=== PATIENT | male | born 1965 | race Caucasian/White ===

== ENCOUNTER 2017-06-16 14:02 | Inpatient (IN) | payer OTHER, MEDICARE ==
[~2017-06-16] VITALS: Ht 190.5 cm; Wt 82.7 kg
[~2017-06-16 14:02] MED LIST: ACYCLOVIR400 M1 PO; ADVAIR 250-501 EACH INH; ASPIRIN81 M4 PO; GABAPENTIN300 M2 PO; GLIMEPIRIDE2 MG PO; HYDROCHLOROTHIA25 M1 PO; LOSARTAN POTASS50 M1 PO; METFORMIN HCL1000 M1 PO; METOPROLOL SUCC25 M1 PO; OXYCODONE HCL10 M2 PO; PAMELOR50 M1 PO; PANTOPRAZOLE SO40 M1 PO; PERCOCET 5-3251 EACH PO; POTASSIUM CHLO10 ME4 PO; PRAVASTATIN SOD20 M2 PO
--- NOTE | 2017-06-16 14:15 | ED GENERAL ADULT ---
History of Present Illness General Chief Complaint: General Adult Stated Complaint: PT WAS SIB DR COY FOR LOW BLOOD COUNT Source: patient, old records Exam Limitations: no limitations Vital Signs & Intake/Output Vital Signs & Intake/Output Vital Signs Date Time Temp Pulse Resp B/P B/P Pulse O2 O2 Flow FiO2 Mean Ox Delivery Rate 06/16 1820 98.5 82 17 147/77 97 Room Air 06/16 1659 98.4 76 18 148/68 98 Room Air 06/16 1642 98.4 78 17 133/63 97 Room Air 06/16 1406 97.0 112 20 134/60 98 Room Air Allergies Coded Allergies: No Known Allergies (10/25/16) Reconcile Medications Acyclovir 400 MG TABLET 1 TAB PO TID ANTIVIRAL (Reported) Amoxicillin 875 MG TABLET 1 TAB PO BID ABX (Reported) Aspirin (Ecotrin*) 81 MG TABLET.DR 1 TAB PO DAILY HEART/BLOOD (Reported) Aspirin/Acetaminophen/Caffeine (Excedrin Migraine Caplet) 250 MG-250 MG-65 MG TABLET 2 TAB PO PRN HEADACHES (Reported) Celecoxib (Celebrex) 200 MG CAPSULE 1 CAP PO BID PAIN/INFLAMMATION (Reported) Esomeprazole (Nexium) 40 MG CAPSULE.DR 1 CAP PO DAILY GI (Reported) Fluticasone/Salmeterol (Advair 250-50 Diskus) 250 MCG-50 MCG/DOSE BLST.W.DEV 2 PUF INH BID ASTHMA (Reported) Gabapentin 300 MG CAPSULE 2 CAP PO 4 TIMES/DAY UNKNOWN (Reported) Glimepiride 2 MG TABLET 1 TAB PO DAILY DIABETES (Reported) Hydrochlorothiazide 25 MG TABLET 1 TAB PO DAILY WATER RETENTION (Reported) Losartan Potassium 50 MG TABLET 1 TAB PO DAILY HEART (Reported) Metformin HCl 1,000 MG TABLET 1 TAB PO BID DIABETES (Reported) Metoprolol Succinate 25 MG TAB 1 TAB PO DAILY HEART (Reported) Nortriptyline HCl (Pamelor) 50 MG CAPSULE 2 CAP PO QPM CRAMPING (Reported) Nortriptyline HCl (Pamelor) 50 MG CAPSULE 1 CAP PO QAM CRAMPING (Reported) Oxycodone HCl (Roxicodone) 15 MG TABLET 1 TAB PO TID PRN PAIN (Reported) Potassium Chloride 10 MEQ TABLET.ER 1 TAB PO DAILY SUPPLEMENT (Reported) Pravastatin Sodium 20 MG TABLET 1 TAB PO DAILY CHOLESTEROL (Reported) Triage Note: PT TO ED FOR LOW H&H. SENT TO ED BY DR ANDERSON. H&H ON 06/13 WAS 5.9 & 20.0. PT APPEARS PALE. C/O FEELING DIZZY AND LIGHTHEADED WITH EXERTION. Triage Nurses Notes Reviewed? yes Onset: Gradual Duration: week(s):, constant Timing: recent history Injury Environment: home Severity: moderate Severity Numbers: 7 No Modifying Factors: none Associated Symptoms: DENIES HPI: 51 year old male with history of GI Bleed, heroin abuse, diabetes mellitus, hypertension, GERD presents to the ER for evaluation complaining of intermittent dizziness shortness of breath with exertion skin pallor is been going on for the past several months. He was admitted in October of this past year for GI bleed however did not have any endoscopy colonoscopy performed as he declined at the time. Patient states over the past few days he's had epigastric abdominal pain and believes he has an ulcer. He's been taking Excedrin for headaches is that this aggravated this pain in his abdomen. He denies nausea vomiting. He has history of chronic diarrhea which he has had for years. He denies any hematuria, black or bloody stools. He denies dizziness or shortness of breath at this time no chest pain palpitations. He is not on any blood thinners. pt smokes, he denies etoh use. (Mitchell Baires) Past History Travel History Traveled to [place] past 21 day No Medical History Any Pertinent Medical History? see below for history Neurological: migraine EENT: NONE Cardiovascular: hypertension Respiratory: asthma Gastrointestinal: GERD, gi bleed Hepatic: NONE Renal: NONE Psychiatric: OPIOD DEP. Endocrine: diabetes Blood Disorders: anemia Cancer(s): NONE HEMATOLOGIST/Reproductive: NONE History of MRSA: No History of VRE: No History of CDIFF: No Surgical History Surgical History: multiple surgeries on his shoulder, elbow and hand Psychosocial History Who do you live with Patient/Self Services at Home None What is your primary language Yakut Tobacco Use: Current Daily Use Daily Tobacco Use Amount/Type: => 5 Cigarettes daily ETOH Use: denies use Illicit Drug Use: heroin Family History Hx Contributory? No (Mitchell Baires) Review of Systems Review of Systems Constitutional: Reports: see HPI. Comments Review of systems: See HPI, All other systems negative. Constitutional, no chills no fever, HEENT: no sore throat no congestion Cardiovascular: No chest pain Skin: no rashes, no change in skin Respiratory: No dyspnea no cough no sputum GI: No nausea no vomiting, diarrhea, : No dysuria No hematuria Muscle skeletal: No joint pain, no back pain, no neck pain, Neurologic: , no headache Heme/endocrine: No bruising Immunology: No lymphadenopathy (Mitchell Baires) Physical Exam Physical Exam General Appearance: well developed/nourished, alert, awake Comments: Well-developed well-nourished person in no acute distress HEENT: Normal EENT exam; PERRL, EOMI,. HEAD is atraumatic. moist mucous membranes. Neck: Supple,normal range of motion without pain or tenderness Back: Full range of motion Cardiovascular: Regular rate and rhythms no murmurs rubs Respiratory: No respiratory distress. Patient speaking in full complete sentences. Breath sounds clear to auscultation bilaterally: NO W/R/R Abdomen: Soft, nontender nondistended, no appreciable organomegaly. Normal bowel sounds. No rebound/guarding,, No ascites. Rectal: Nontender. Brown stool heme positive No mass, no fissure. Extremity: No edema, full range of motion of extremities, Neuro: Alert oriented x3, motor sensory normal, There were no obvious focal neurologic abnormalities. Skin: No appreciable rash on exposed skin, skin is pale and dry. Psych: Mood and affect is normal, memory and judgment is normal. Core Measures ACS in differential dx? No CVA/TIA Diagnosis: No Sepsis Present: No Sepsis Focused Exam Completed? No (Mitchell Baires) Progress Differential Diagnoses I considered the following diagnoses in my evaluation of the patient: [gi bleed, symptomatic anemia orthostatic hypotension dehydration electrolyte abnormality Plan of Care: Orders Procedure Date/time Status Nothing by Mouth 06/17 B Active TROPONIN LEVEL 06/17 0500 Active ICU LAB BUNDLE 06/17 0500 Active CBC WITHOUT DIFFERENTIAL 06/17 0500 Active EKG 06/17 0500 Active Heart Healthy Diet 06/16 D Complete TROPONIN LEVEL 06/16 2100 Active CBC WITHOUT DIFFERENTIAL 06/16 2100 Active EKG 06/16 2100 Active Wound Care/Dressing 06/16 1825 Active Drains/Tubes 06/16 1825 Active Wound Care/Dressing 06/16 1806 Complete Weight 06/16 1806 Active VTE Mechanical Prophylaxis 06/16 1806 Active Vital Signs 06/16 1806 Active Turn and Reposition 06/16 180 Complete Drains/Tubes 06/16 1806 Complete Teach/Educate 06/16 180 Active Skin Integrity Protocol 06/16 1806 Active Skin/Pressure Ulcer Assess (Sk 06/16 1806 Active Precautions 06/16 1806 Active Pain Treatment and Response 06/16 1806 Active Nutritional Intake, Monitor 06/16 1806 Active Isolation 06/16 1806 Active CIWA 06/16 180 Active Patient Care Conference 06/16 1806 Active Activity/Ambulation 06/16 1806 Active VRE ACTIVE SURVIELLANCE 06/16 1751 Active ACTIVE SURVEILLANCE NARES 06/16 1751 Active Pathway - chart 06/16 1731 Active House Staff 06/16 1731 Active URINE DRUGS OF ABUSE 06/16 1731 Active URINE LYTES, SPOT 06/16 1731 Active URINALYSIS 06/16 1731 Active BLOOD PRODUCT PICKUP 06/16 1613 Active Patient Data 06/16 1602 Active Add-on Test (ER Only) 06/16 1508 Active LEUKOCYTE POOR (PACKED CELLS) 06/16 1508 Active Intake & Output 06/16 1500 Active ED Holding Orders 06/16 1457 Active Admit to inpatient 06/16 1457 Active Vital Signs 06/16 1457 Active Code Status 06/16 1457 Active TOTAL IRON BINDING CAPACITY 06/16 1455 Active LIPASE 06/16 1455 Active FERRITIN 06/16 1455 Active SERUM IRON 06/16 1455 Active ETHANOL 06/16 1455 Active MISTAKE 06/16 1424 Complete TROPONIN LEVEL 06/16 1413 Active PARTIAL THROMBOPLASTIN TIME 06/16 1413 Complete PROTHROMBIN TIME 06/16 1413 Complete COMPREHENSIVE METABOLIC PANEL 06/16 1413 Active CBC WITHOUT DIFFERENTIAL 06/16 1413 Complete EKG 06/16 1413 Active TYPE & SCREEN (NOT X-MATCH) 06/16 1413 Active Saline Lock 06/16 UNK Active Lab Add-on Test 06/16 UNK Active VTE Mechanical Prophylaxis 06/16 UNK Active Vital Signs 06/16 UNK Complete MISTAKE 06/16 UNK Complete Intake & Output 06/16 UNK Complete Hemoccult 06/16 UNK Active FingerStick- Glucose 06/16 UNK Active CIWA 06/16 UNK Active Activity/Ambulation 06/16 UNK Active Current Medications Sig/Marissa Start time Last Medication Dose Stop Time Status Admin Nortriptyline HCl 50 MG QAM 06/17 899 UNVr (Aventyl 50MG - Pamelor Cap) Pravastatin Sodium 20 MG DAILY 06/17 899 UNVr (Pravachol) Acyclovir 400 MG TID 06/16 2099 UNVr (Zovirax-Acyclovir 200MG Capsule) Budesonide/ 2 PUF BID 06/16 2099 UNVr Formoterol Fumarate (Symbicort) Gabapentin 600 MG 4 TIMES/DAY 06/16 2099 UNVr (Neurontin) Nortriptyline HCl 100 MG QPM 06/16 2099 UNVr (Aventyl 50MG - Pamelor Cap) Pantoprazole Sodium 40 MG BID 06/16 2099 UNVr (Protonix) Bisacodyl 5 MG ONE ONE 06/17 1999 UNVr (Dulcolax) 06/16 2000 Bisacodyl 5 MG ONE ONE 06/17 1999 UNVr (Dulcolax) 06/16 2000 Polyethylene Glycol 1 GAL ONCE ONE 06/17 1999 UNVr (Golytely Liq 4000 06/16 2001 Ml) Insulin Aspart 0 TIDAC 06/16 181 UNVr (NovoLOG) Sodium Chloride 1,000 ML Q10H 06/16 1800 UNVr (Normal Saline 0.9%) Oxycodone HCl 15 MG Q8P PRN 06/16 1745 UNVr (Roxicodone) Acetaminophen 325 MG Q8P PRN 06/16 1730 UNVr (Tylenol) Laboratory Tests 06/16/17 1455: Anion Gap 12, Estimated GFR 58 L, BUN/Creatinine Ratio 17.7, Glucose 100 H, Calcium 8.8, Iron 20 L, TIBC 434, Ferritin Pending, Total Bilirubin 0.3, AST 12 L, ALT 14 L, Alkaline Phosphatase 48, Troponin I < 0.01, Total Protein 6.8, Albumin 3.9, Globulin 2.9, Albumin/Globulin Ratio 1.3, Lipase 63, PT 11.7, INR 1.07, APTT 32, CBC w Diff MAN DIFF ORDERED, RBC 2.71 L, MCV 62.8 L, MCH 19.2 L, MCHC 30.6 L, RDW 18.4 H, MPV 7.5, Gran % 75.2, Lymphocytes % 13.6 L, Monocytes % 8.3, Eosinophils % 2.9, Basophils % 0, Absolute Granulocytes 6.3, Absolute Lymphocytes 1.1 L, Absolute Monocytes 0.7 H, Absolute Eosinophils 0.2 , Absolute Basophils 0, Platelet Estimate ADEQUATE, Hypochromic-Microcytic 3+, Poikilocytosis FEW, Microcytic Cells 3+, Serum Alcohol < 10.0 Microbiology 06/16 1750 UPPER RESP: Surveillance Culture - COLB 06/16 1750 GI: Surveillance Culture - COLB Labs ordered old records reviewed orthostatics are negative. Case discussed with Dr. Mcgowan who evaluated the patient advised that the patient be scoped. Protonix drip IV fluids ordered patient consented for 3 units blood. Case discussed with Dr. Shin agrees the plan 1600 dr moreno in dept to eval pt Initial ED EKG: normal intervals, normal p-waves, normal QRS complex, normal sinus rhythm Prior EKG: unchanged (Mitchell Baires) Departure Departure Disposition: STILL A PATIENT Condition: Stable Clinical Impression Primary Impression: GI bleed Secondary Impressions: Symptomatic anemia Referrals: Radha LOPEZ,Idalia Valencia (PCP/Family) Departure Forms: Customer Survey General Discharge Information (Mitchell Baires) Admission Note Spoke With: Amy Moreno MD Documentation of Exam: Documentation of any treatments & extenuating circumstances including Concerns Regarding Discharge (functional status, medication knowledge or non-compliance, living conditions, etc.) that warrant an admission rather than observation: [ICU admission, close monitoring, telemetry monitoring, transfusion, GI consultation, colonoscopy and possible endoscopy tomorrow and less he begins to actively bleed tonight in which case he'll need it done sooner.] PA/BERRY PICKER MACHINE OPERATOR Co-Sign Statement Statement: ED Attending supervision documentation- [X] I saw and evaluated the patient. I have also reviewed all the pertinent lab results and diagnostic results. I agree with the findings and the plan of care as documented in the PA's/BERRY PICKER MACHINE OPERATOR's documentation. [X] I have reviewed the ED Record and agree with the PA's/BERRY PICKER MACHINE OPERATOR's documentation. [] Additions or exceptions (if any) to the PAs/BERRY PICKER MACHINE OPERATOR's note and plan are summarized below: [Patient has been taking NSAIDS and is now anemic. IV Protonix, GI consultation , transfusion] (Aleida LOPEZ,Juan Farmer) Critical Care Note Critical Care Note Critical Care Time: 30-74 min (Mitchell Baires)
[2017-06-16 15:16] LABS: ABSOLUTE BASOPHIL COUNT 0 /CUMM (0.0-0.2); ABSOLUTE EOSINOPHIL COUNT 0.2 /CUMM (0.0-0.7); ABSOLUTE GRANULOCYTE CT 6.3 /CUMM (1.4-6.5); ABSOLUTE LYMPH COUNT 1.1 /CUMM (1.2-3.4); ABSOLUTE MONOCYTE COUNT 0.7 /CUMM (0.10-0.60); BASOPHIL % 0 % (0.0-2.0); EOSINOPHIL % 2.9 % (0-5); GRANULOCYTE % 75.2 % (42.2-75.2); MEAN CORPUSCULAR HGB 19.2 PG (27.0-31.0); MEAN CORPUSCULAR HGB CONC 30.6 G/DL (33.0-37.0); MEAN CORPUSCULAR VOLUME 62.8 FL (80.0-94.0); MEAN PLATELET VOLUME 7.5 FL (7.4-10.4); PLATELET COUNT 399 /CUMM (130-400); RBC DISTRIBUTION WIDTH 18.4 % (11.5-14.5); RED BLOOD CELL CT 2.71 /CUMM (4.70-6.10); WHITE BLOOD CELL COUNT 8.4 /CUMM (4.8-10.8)
[2017-06-16 15:25] LABS: PT 11.7 SEC (9.4-12.5); PTT 32 SEC (25-37)
--- NOTE | 2017-06-16 16:06 | Cons- Gastroenterology ---
General Information and HPI Consulting Request Date of Consult: 06/16/17 Requested By: AMY Patton Reason for Consult: Anemia. Heartburn, dysphagia. Source of Information: patient, old records Exam Limitations: no limitations History of Present Illness: Mr. Jones is a 51-year-old male with a previous medical history significant for GERD and asthma who was sent into [facility] today after his PCP noted to be profoundly anemic on blood work done a few days ago. The patient was last in [facility] in September of last year when he was similarly anemic and on that admission he was transfused and was recommended that he have an inpatient endoscopic workup considering he had previously canceled an endoscopic workup arranged for early this year twice, but he refused to take the bowel prep and he did not follow-up with us as an outpatient. He notes that after that he did relatively well for a few months and then began having progressive lethargy, fatigue, and dyspnea on exertion and he also noted some blackouts for which she ultimately went back to his PCP a few days ago and repeat blood work that showed a profound microcytic anemia with a hgb of 5.9. He was subsequently called back and told to come to the emergency room today for transfusion. Other than feeling weak and fatigued he also notes upper abdominal and chest discomfort and he notes intermittent solid food dysphagia which she notes is similar to complaints he has had throughout the years. He takes Protonix for his reflux which she notes controls the burning well, but if he misses a dose he will get break through symptoms. He is without any hematemesis or vomiting. He also reports having normal bowel movements without any bright blood per rectum or melena and the also denies any constipation or diarrhea. Allergies/Medications Allergies: Coded Allergies: No Known Allergies (10/25/16) Home Med List: Acyclovir 400 MG TABLET 1 TAB PO TID UNKNOWN (Reported) Fluticasone/Salmeterol (Advair 250-50 Diskus) 250 MCG-50 MCG/DOSE BLST.W.DEV 2 PUF INH BID ASTHMA (Reported) Gabapentin 300 MG CAPSULE 2 CAP PO 4 TIMES/DAY UNKNOWN (Reported) Glimepiride 2 MG TABLET 1 TAB PO DAILY DIABETES (Reported) Hydrochlorothiazide 25 MG TABLET 1 TAB PO DAILY WATER RETENTION (Reported) Losartan Potassium 50 MG TABLET 1 TAB PO DAILY HEART (Reported) Metformin HCl 1,000 MG TABLET 1 TAB PO BID DIABETES (Reported) Metoprolol Succinate 25 MG TAB 1 TAB PO DAILY HEART (Reported) Nortriptyline HCl (Pamelor) 50 MG CAPSULE 1 CAP PO DAILY UNKNOWN (Reported) Nortriptyline HCl (Pamelor) 50 MG CAPSULE 2 CAP PO QPM UNKNOWN (Reported) Oxycodone HCl 10 MG TABLET 10 MG PO Q6PRN PRN PAIN SCALE 4-6 (MODERATE) Warning: Do not operate heavy machinery while using this drug. Oxycodone HCl/Acetaminophen (Percocet 5-325 MG Tablet) 5 MG-325 MG TABLET 1 TAB PO BID PAIN Pantoprazole Sodium 40 MG TABLET.DR 1 TAB PO DAILY ACID REFLUX (Reported) Potassium Chloride 10 MEQ TABLET.ER 1 TAB PO DAILY SUPPLEMENT (Reported) Pravastatin Sodium 20 MG TABLET 1 TAB PO DAILY CHOLESTEROL (Reported) Current Medications: Current Medications Sig/Marissa Start time Last Medication Dose Route Stop Time Status Admin Pantoprazole Sodium 0 .STK-MED ONE 06/16 1546 DC IV Pantoprazole Sodium 40 MG ONCE ONE 06/16 1515 AC Sodium Chloride 100 ML IV 06/16 2013 Sodium Chloride 1,000 ML BOLUS ONE 06/16 1515 AC 06/16 IV 06/16 1614 1513 Sodium Chloride 1,000 ML BOLUS ONE 06/16 1515 AC IV 06/16 1614 Past History Travel History Traveled to [place] past 21 day No Medical History Neurological: migraine EENT: NONE Cardiovascular: hypertension Respiratory: asthma Gastrointestinal: GERD, gi bleed Hepatic: NONE Renal: NONE Psychiatric: OPIOD DEP. Endocrine: diabetes Blood Disorders: anemia Cancer(s): NONE SUPERVISOR TREE TRIMMING/Reproductive: NONE Surgical History Surgical History: multiple surgeries on his shoulder, elbow and hand Psychosocial History Services at Home: None ETOH Use: denies use Illicit Drug Use: heroin Review of Systems Review of Systems Constitutional: Reports: malaise, weakness. Denies: diaphoresis, unexplained weight loss. EENTM: Denies: no symptoms. Cardiovascular: Reports: chest pain, orthopena, palpitations, syncope. Respiratory: Reports: short of breath. Denies: cough, hemoptysis, sputum production, stridor , wheezing. GI: Reports: see HPI. Genitourinary: Denies: no symptoms. Musculoskeletal: Denies: no symptoms. Skin: Denies: no symptoms. Neurological/Psychological: Reports: headache, weakness. Hematologic/Endocrine: Denies: bleeding. Immunologic/Allergic: Denies: no symptoms. All Other Systems: Reviewed and Negative Exam & Diagnostic Data Vital Signs and I&O Vital Signs Date Time Temp Pulse Resp B/P B/P Pulse O2 O2 Flow FiO2 Mean Ox Delivery Rate 06/16 1406 97.0 112 20 134/60 98 Room Air Intake & Output 06/16 1600 06/16 0400 06/15 0400 06/14 0400 Intake Total Output Total Balance Patient 192 lb Weight Weight Reported by Patient Measurement Method Physical Exam General Appearance: well developed/nourished, no apparent distress, alert, awake , comfortable, pale Head: atraumatic, normal appearance Eyes: Bilateral: normal appearance, other (pallor). Ears, Nose, Throat: normal pharynx Neck: normal inspection Respiratory: normal breath sounds, chest non-tender, no respiratory distress Cardiovascular: regular rate/rhythm Gastrointestinal: normal bowel sounds, soft, non-tender, no organomegaly Rectal: brown g+ stool per ED Back: normal inspection, normal range of motion Extremities: normal inspection, normal range of motion Neurologic/Psych: no motor/sensory deficits, awake, alert, oriented x 3 Results Pertinent Lab Results: Laboratory Tests 06/16 1455 Chemistry Sodium (137 - 145 mmol/L) 135 L Potassium (3.5 - 5.1 mmol/L) 3.6 Chloride (98 - 107 mmol/L) 97 L Carbon Dioxide (22 - 30 mmol/L) 26 Anion Gap (5 - 16) 12 BUN (9 - 20 mg/dL) 23 H Creatinine (0.7 - 1.2 mg/dL) 1.3 H Estimated GFR (>60 ml/min) 58 L BUN/Creatinine Ratio (7 - 25 %) 17.7 Glucose (65 - 99 mg/dL) 100 H Calcium (8.4 - 10.2 mg/dL) 8.8 Total Bilirubin (0.2 - 1.3 mg/dL) 0.3 AST (17 - 59 U/L) 12 L ALT (21 - 72 U/L) 14 L Alkaline Phosphatase (< 127 U/L) 48 Troponin I (<0.11 ng/ml) < 0.01 Total Protein (6.3 - 8.2 g/dL) 6.8 Albumin (3.5 - 5.0 g/dL) 3.9 Globulin (1.9 - 4.2 gm/dL) 2.9 Albumin/Globulin Ratio (1.1 - 2.2 %) 1.3 Lipase (23 - 300 U/L) 63 Coagulation PT Pending INR Pending APTT Pending Hematology CBC w Diff MAN DIFF ORDERED WBC (4.8 - 10.8 /CUMM) 8.4 RBC (4.70 - 6.10 /CUMM) 2.71 L Hgb (14.0 - 18.0 G/DL) 5.2 *L Hct (42 - 52 %) 17.0 *L MCV (80.0 - 94.0 FL) 62.8 L MCH (27.0 - 31.0 PG) 19.2 L MCHC (33.0 - 37.0 G/DL) 30.6 L RDW (11.5 - 14.5 %) 18.4 H Plt Count (130 - 400 /CUMM) 399 MPV (7.4 - 10.4 FL) 7.5 Gran % (42.2 - 75.2 %) 75.2 Lymphocytes % (20.5 - 51.1 %) 13.6 L Monocytes % (1.7 - 9.3 %) 8.3 Eosinophils % (0 - 5 %) 2.9 Basophils % (0.0 - 2.0 %) 0 Absolute Granulocytes (1.4 - 6.5 /CUMM) 6.3 Absolute Lymphocytes (1.2 - 3.4 /CUMM) 1.1 L Absolute Monocytes (0.10 - 0.60 /CUMM) 0.7 H Absolute Eosinophils (0.0 - 0.7 /CUMM) 0.2 Absolute Basophils (0.0 - 0.2 /CUMM) 0 Platelet Estimate (ADEQUATE) ADEQUATE Hypochromic-Microcytic 3+ Poikilocytosis FEW Microcytic Cells 3+ Toxicology Serum Alcohol (<10 MG/DL) < 10.0 Assessment/Plan Assessment/Recommendations: Assessment: Mr. Jones is a 51 year old male with a profound micocytic anemia without overt GI bleeding which is concerning for an underlying GI malignancy. He was seen here in September with a similar presentation at which point it was recommended that he have an inpatient endoscopic work up, but he refused to take the bowel prep on that hospitalization and didn't follow up, but he seems more ready to do that now. While he does have some upper GI symptoms, refux and dysphagia it is possible he has an upper GI malignancy, but I would still recommend at least attempting to prep him for a colonoscopy in case the upper endoscopy which I will tentaively plan to do tomorrow if the endoscopy is negative. It should also be noted that on a CAT scan done for an elevated d- dimer in september of last year did show some lymphadenopathy which could also be suggestive of an upper GI malignancy, but no obvious esophageal pathology was commented on. It is also possible that his anemia could be from benign causes such as avms, or erosive peptic disease, but the later is somewhat less likely considering he has maintained himself on a ppi. Recommendations: 1. Admit to the ICU so that endoscopic procedures can be done, but if ICU beds are not available he could be transferred there in the morning. 2. Keep on full liquid diet for now with nothing red. 3. Transfuse to keep his hgb > 7 or as per cardiology recommendations. 4. Continue IV protonix 40 mg daily for now and will likely change this back to a po ppi after the endoscopy. 5. After a liquid supper would give 2 dulcolax tablets followed by one gallon of golytle and would keep NPO after the bowel prep. 6. Notify GI for signs of overt GI bleeding. 7. Will tentatively plan for a diagnosic EGD/colonoscopy for 9am tomorrow morning. Further recommendations will be made pending the results of the endoscopic workup and his clinical course. Problem List: 1. GI bleed 2. Dizziness 3. Weakness 4. Symptomatic anemia Copies To: Radha LOPEZ,Idalia Allen. Consult Acknowledgment - Thank you for your consult request.
[2017-06-16] MEDS ORDERED: ASPIRIN EC81 M1 PO (16:17)
[2017-06-16] MEDS ORDERED: ROXICODONE15 M1 PO (16:18)
[2017-06-16] MEDS ORDERED: CELEBREX200 M1 PO (16:20)
[2017-06-16] MEDS ORDERED: NEXIUM40 M1 PO (16:21)
[2017-06-16] MEDS ORDERED: AMOXICILLIN875 M1 PO (16:22)
[2017-06-16] MEDS ORDERED: EXCEDRIN MIGRA1 EAC1 PO (16:23)
--- NOTE | 2017-06-16 16:44 | History & Physical ---
BiancadavidFekristine 06/16/17 6704: General Information and HPI MD Statement: I have seen and personally examined KETTY PETE and documented this H&P. The patient is a 51 year old M who presented with a patient stated chief complaint of dizziness, anemia ( sent by his PCP) Source of Information: patient, old records Exam Limitations: no limitations History of Present Illness: Mr Gaona is a 51 year old man w/ a PMHx of GI bleed, polysubstance abuse, type 2 diabetes, hypertension, GERD was sent to the ER by his primary care physician when he was found to be anemic on recent blood work. He was evaluated in ~ 2016 for anemia, heroin withdrawal and vasovagal syncope. and was recommended to have inpatient EGD/colonoscopy, and could not get it done at that time. He was lost to follow-up later. He also has a chief concern of orthostatic dizziness, dyspnea on exertion, and epigastric pain after he drinks upto three alcoholic drinks and use of Eccedrin. He was known to be in his usual state of health until two months after he was discharged in 10/2016, and started having orthostatic dizziness, when he got out the sitting position. He also reported several episdoes of " blackout after the dizziness", but did not have any syncopal episodes. He also has a vague symptoms of "convulsions", but is not sure if he had any seizure illness or related to alcohol/drug withdrawl. Also reported exertional dyspnea that started a few months ago, that he noticed when he takes stairs which progressed to doing his daily chores. Reported occassional dysphagia to solid foods only, and weight loss of approximately 100 lbs in the last one year, which is unintentional. Also has chronic cough, and reported occassional chest discomfort in the last few months, which has not been evaluated by any cardilogist. He has family h/o of CAD in father and mother. 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 Uses heroin, and cocaine occassionally, but didnt use in the last week or so. Uses alcohol regularly, but no heavy use. No nausea or vomiting. Reported chronic diarrhea. No melena, bleeding per rectum. No chest pain, palpitations. No recent use of anticoagulants. Allergies/Medications Allergies: Coded Allergies: No Known Allergies (10/25/16) Home Med list Acyclovir 400 MG TABLET 1 TAB PO TID ANTIVIRAL (Reported) Amoxicillin 875 MG TABLET 1 TAB PO BID ABX (Reported) Aspirin (Ecotrin*) 81 MG TABLET.DR 1 TAB PO DAILY HEART/BLOOD (Reported) Aspirin/Acetaminophen/Caffeine (Excedrin Migraine Caplet) 250 MG-250 MG-65 MG TABLET 2 TAB PO PRN HEADACHES (Reported) Celecoxib (Celebrex) 200 MG CAPSULE 1 CAP PO BID PAIN/INFLAMMATION (Reported) Esomeprazole (Nexium) 40 MG CAPSULE.DR 1 CAP PO DAILY GI (Reported) Fluticasone/Salmeterol (Advair 250-50 Diskus) 250 MCG-50 MCG/DOSE BLST.W.DEV 2 PUF INH BID ASTHMA (Reported) Gabapentin 300 MG CAPSULE 2 CAP PO 4 TIMES/DAY UNKNOWN (Reported) Glimepiride 2 MG TABLET 1 TAB PO DAILY DIABETES (Reported) Hydrochlorothiazide 25 MG TABLET 1 TAB PO DAILY WATER RETENTION (Reported) Losartan Potassium 50 MG TABLET 1 TAB PO DAILY HEART (Reported) Metformin HCl 1,000 MG TABLET 1 TAB PO BID DIABETES (Reported) Metoprolol Succinate 25 MG TAB 1 TAB PO DAILY HEART (Reported) Nortriptyline HCl (Pamelor) 50 MG CAPSULE 2 CAP PO QPM CRAMPING (Reported) Nortriptyline HCl (Pamelor) 50 MG CAPSULE 1 CAP PO QAM CRAMPING (Reported) Oxycodone HCl (Roxicodone) 15 MG TABLET 1 TAB PO TID PRN PAIN (Reported) Potassium Chloride 10 MEQ TABLET.ER 1 TAB PO DAILY SUPPLEMENT (Reported) Pravastatin Sodium 20 MG TABLET 1 TAB PO DAILY CHOLESTEROL (Reported) Past History Travel History Traveled to [place] past 21 day No Medical History Neurological: migraine Cardiovascular: hypertension Respiratory: asthma Gastrointestinal: GERD, gi bleed Hepatic: NONE Renal: NONE Psychiatric: OPIOD DEP. 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 FATHER Psychosocial History Services at Home: None ETOH Use: denies use Illicit Drug Use: heroin Review of Systems Review of Systems Constitutional: Reports: see HPI. EENTM: Reports: visual changes. Cardiovascular: Reports: chest pain. Respiratory: Reports: cough, short of breath. GI: Reports: abdominal pain. Denies: melena, nausea, bloody stool, changes in stool , vomiting. Genitourinary: Denies: dysuria. Musculoskeletal: Denies: back pain. Skin: Reports: change in skin color. Neurological/Psychological: Reports: headache. Denies: anxiety. Hematologic/Endocrine: Denies: bruising. Exam & Diagnostic Data Last 24 Hrs of Vital Signs/I&O Vital Signs Date Time Temp Pulse Resp B/P B/P Pulse O2 O2 Flow FiO2 Mean Ox Delivery Rate 06/16 1659 98.4 76 18 148/68 98 Room Air 06/16 1642 98.4 78 17 133/63 97 Room Air 06/16 1406 97.0 112 20 134/60 98 Room Air Intake & Output 06/16 1600 06/16 0800 06/16 0000 Intake Total Output Total Balance Patient 192 lb Weight Weight Reported by Patient Measurement Method Physical Exam General Appearance Alert, Oriented X3, Cooperative, No Acute Distress, Mild Distress, pale Skin No Rashes, No Breakdown, No Significant Lesion Skin Temp/Moisture Exam: Warm/Dry Sepsis Skin Exam (color): Normal for Ethnicity, Cyanotic, Flushed HEENT Atraumatic, PERRLA, EOMI, pharyngeal wall erythema Neck Supple, No JVD, No thryomegaly, +2 Carotid Pulse wo Bruit Lymphatic Axillary nl, Cervical nl Cardiovascular Regular Rate, Normal S1, Normal S2, No Murmurs Lungs Clear to Auscultation, Normal Air Movement Abdomen Normal Bowel Sounds, Soft, No Tenderness, No Hepatospenomegaly Neurological Normal Gait, Normal Speech, Strength at 5/5 X4 Ext, Normal Tone, Sensation Intact, Cranial Nerves 3-12 NL, Reflexes 2+ Extremities No Cyanosis, No Edema, Normal Pulses Vascular Normal Pulses, Pulses Symmetrical Sepsis Peripheral Pulse Location: Dorsalis Pedis Last 24 Hrs of Labs/Dimas: Laboratory Tests 06/16/17 1455: Anion Gap 12, Estimated GFR 58 L, BUN/Creatinine Ratio 17.7, Glucose 100 H, Calcium 8.8, Iron 20 L, TIBC Pending, Ferritin Pending, Total Bilirubin 0.3, AST 12 L, ALT 14 L, Alkaline Phosphatase 48, Troponin I < 0.01, Total Protein 6.8, Albumin 3.9, Globulin 2.9, Albumin/Globulin Ratio 1.3, Lipase 63, PT 11.7, INR 1.07, APTT 32, CBC w Diff MAN DIFF ORDERED, RBC 2.71 L, MCV 62.8 L, MCH 19.2 L, MCHC 30.6 L, RDW 18.4 H, MPV 7.5, Gran % 75.2, Lymphocytes % 13.6 L, Monocytes % 8.3, Eosinophils % 2.9, Basophils % 0, Absolute Granulocytes 6.3, Absolute Lymphocytes 1.1 L, Absolute Monocytes 0.7 H, Absolute Eosinophils 0.2 , Absolute Basophils 0, Platelet Estimate ADEQUATE, Hypochromic-Microcytic 3+, Poikilocytosis FEW, Microcytic Cells 3+, Serum Alcohol < 10.0 Microbiology 06/16 1750 UPPER RESP: Surveillance Culture - COLB 06/16 1750 GI: Surveillance Culture - COLB Diagnostic Data EKG Results NSR, ST depressions in V5,6. Assessment/Plan Assessment: Mr Gaona is a 51 year old man w/ a PMHx of GI bleed, polysubstance abuse, type 2 diabetes, hypertension, GERD is being evaluted for symptomatic anemia which likely from chronic blood loss, from possibly upper GI source. At the time of admission-vitals 97.0, pulse rate 112, respiration 20, blood pressure 134/60, pulse ox 98% on room air. Pertinent lab findings-W BC 8.4, hemoglobin 5.2 (last hemoglobin check 10/2016- 9.8), hematocrit 17.0, MCV 62.8, platelets 399. Sodium 135, potassium 3.6, chloride 97, carbon dioxide 26, anion gap 12, BUN 23, creatinine 1.3 (baseline 1.0), AST 12, AST 14, alkaline phosphatase 48, troponin I-0.01, INR 1.07, PTT 32; Serum alcohol less than 10. Last echocardiogram done in 2016- Normal size left ventricle. Borderline to mild concentric left ventricular hypertrophy. No obvious regional wall motion abnormalities. Normal left ventricular ejection fraction visually estimated at > 65%. "pseudonormal" filling pattern of the left ventricle for age (stage 2 diastolic dysfunction). Normal right ventricular size and function. Normal right atrial size. Mild left atrial dilatation. Trace mitral regurgitation. Trace tricuspid regurgitation. No evidence of pulmonary hypertension. Mildly dilated inferior vena cava. No evidence of obvious valvular vegetations on the mitral, aortic, tricuspid, or pulmonic valves. CT scan chest 10/26/2016- 1. No pulmonary embolus identified.2. Irregular consolidation in the basilar left lower lobe, suspicious forpneumonia in the proper clinical setting. Possible developing cavitation in the anterior left lower lobe. This may be reassessed on follow-up CT in approximately 3 months to evaluate for resolution. 3. Multiple mediastinal lymph nodes, with mild adenopathy in the subcarinal region. These may be reactive, and attention on follow-up is recommended. Problem list: #1 GI bleed #2 substance abuse #3 microcytic anemia, acute blood loss anemia #4 hypertension #5 type 2 diabetes #6 acute kidney injury #7 alcohol abuse #8 hyperlipidemia #9 history of asthma Etiology in this case is likely due to blood loss anemia, which could be chronic in his case given dysphagia, and lymphadenopathy found on previous CAT scans, weight loss-malignancy is not completely ruled out. Recent use of nonsteroidal anti-inflammatory agents, could have exacerbated his symptoms. Other causes such as malnutrition, decreased absorption due to celiac sprue or Crohn's disease can contribute or cause the symptoms. Plan: #1 respiratory- stable at this time. He has a history of asthma, Advair could be continued at this time. #2 infectious-does not seem to have any current source of infection, but is being treated for acute pharyngitis with amoxicillin, by his primary care physician which could be continued to complete the course. He should also be continued on acyclovir for the treatment of genital herpes. #3 circulatory-monitor blood pressure closely, given GI bleed. He should be continued on intravenous fluids, normal saline at least at 100 mL an hour. Hold antihypertensives at this time. Reintroduce as blood pressure allows. Since he had EKG changes in lateral leads, would check serial ekgs and trops to make sure that he doesnt have any cardiac ischemia. #4 hematology-likely from chronic blood loss anemia. Transfuse 2 units of PRBCs. Maintain 2 large bore IV needles. Continue IV proton next 40 mg intravenous twice a day. Check iron, TIBC, ferritin, reticulocyte count. Would defer the decision to check a TTG, to the bleacher lard. Does not appear to have any evidence of lymphoma, but would keep it in differential also. Viral infections such as HIV needs to be ruled out. #5 alimentary-likely source of blood loss is upper GI, which appears to be chronic. Malignancy, ulcer needs to be ruled out. Hold all nonsteroidal anti- inflammatories, including aspirin. As per the bleacher lard, he would need an upper endoscopy and possibly a colonoscopy if the patient takes GoLYTELY. Colitis is not completely ruled out in this case. Other differentials are Crohn 's disease, or any lower GI bleed. Guaiac all stools. #6 neurology-patient continues to be on chronic pain medications for back pain. Continue oxycodone 15 mg every day as needed. Check urine toxicology screen. 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 Seizure precautions. [facility] protocol for alcohol withdrawal, at least for the next 24-48 hours. #7 metabolic-has acute kidney injury, likely from diarrhea or dehydration. Check urine lites. Continue intravenous fluids at this time. Has a history of type 2 diabetes, and would hold all oral hypoglycemic drugs at this time. Continue Accu-Cheks, and insulin sliding scale. Check HbA1c, if not checked in the last 3 months. Replete electrolytes accordingly. Housekeeping: #1 DVT prophylaxis-alps only. #2 CODE STATUS-full code. #1 Central line- none #2 Arterial line- none #3 Alarcon catheter- none #4 Rectal tube- none #5 NG tube- none #6 IV/peripheral line- yes x 2 18g. 06/16/17 #7 IV drips- PRBCs, and NS @100-150ml/hr #8 Vent settings: none #9 pressors none. As Ranked By This Provider Problem List: 1. GI bleed 2. Weakness 3. Dizziness Core Measures/Misc (11/13) Acute Coronary Syndrome ACS Diagnosis: No Congestive Heart Failure Congestive Heart Failure Diagnosis No Cerebrovascular Accident CVA/TIA Diagnosis: No VTE (View Protocol) VTE Risk Factors Age>40 No Mechanical VTE Prophylaxis d/t N/A MechProphylax Ordered No VTE Pharm Prophylaxis d/t Medical Contraindication Sepsis (View protocol) Sepsis Present: No Bhakti,Amy 06/16/17 1652: Attending Review Statement Attending Statement Attending MD Statement: examined this patient, discuss w/resident/PA/WEIGH TANK OPERATOR, agreed w/resident/PA/WEIGH TANK OPERATOR, discussed with family, reviewed EMR data (avail), discussed with nursing, discussed with case mgmt, reviewed images, amended to note Attending Assessment/Plan: Pateinet sent from PCP after low h/h count. Takes over the counter NSAIDs. Patient found to have severe blood loss anemia possible GI bleed likely peptic ulcer disease. He is tachycardic and holding his BP. Admit patient to ICU/ critical care and aggressive hydration. Transfuse PRBC hb 8. GI consulted in ER. Diet, Plan for EGD/colon as per GI. Bowel prep as per GI. PPI iv. Serial monitoring of cbc and monitor hemodynamics closely. PLan of care d/wed patient bedside. Full code.
[2017-06-16 18:57] VITALS: BP 138/77
[2017-06-16 20:00] VITALS: BP 127/61
[2017-06-16 22:00] VITALS: BP 137/65
--- NOTE | 2017-06-16 22:25 | Event Note ---
Event Note Event Note: Mr Jones refused to have the colon prep; discussed with him the benefits of getting the test done, but he was reluctant to have this test done.
[2017-06-16 22:42] LABS: ABSOLUTE BASOPHIL COUNT 0 /CUMM (0.0-0.2); ABSOLUTE EOSINOPHIL COUNT 0.3 /CUMM (0.0-0.7); ABSOLUTE GRANULOCYTE CT 5.9 /CUMM (1.4-6.5); ABSOLUTE LYMPH COUNT 1.4 /CUMM (1.2-3.4); ABSOLUTE MONOCYTE COUNT 0.8 /CUMM (0.10-0.60); BASOPHIL % 0.5 % (0.0-2.0); EOSINOPHIL % 3.3 % (0-5); GRANULOCYTE % 70.1 % (42.2-75.2); HEMATOCRIT 21.2 % (42-52); MEAN CORPUSCULAR HGB 19.8 PG (27.0-31.0); MEAN CORPUSCULAR HGB CONC 29.8 G/DL (33.0-37.0); MEAN PLATELET VOLUME 7.6 FL (7.4-10.4); PLATELET COUNT 318 /CUMM (130-400); RBC DISTRIBUTION WIDTH 20.3 % (11.5-14.5); RED BLOOD CELL CT 3.17 /CUMM (4.70-6.10); WHITE BLOOD CELL COUNT 8.4 /CUMM (4.8-10.8)
[2017-06-16 22:51] LABS: MEAN CORPUSCULAR VOLUME 66.7 FL (80.0-94.0)
[2017-06-16 23:00] VITALS: BP 144/72
[2017-06-17] VITALS (10 sets, daily range): BP systolic 122–152; BP diastolic 62–84
[2017-06-17 04:38] LABS: ABSOLUTE BASOPHIL COUNT 0 /CUMM (0.0-0.2); ABSOLUTE EOSINOPHIL COUNT 0.3 /CUMM (0.0-0.7); BASOPHIL % 0 % (0.0-2.0); MEAN CORPUSCULAR HGB 20.5 PG (27.0-31.0)
[2017-06-17 04:47] LABS: ABSOLUTE GRANULOCYTE CT 5.5 /CUMM (1.4-6.5); ABSOLUTE LYMPH COUNT 1.2 /CUMM (1.2-3.4); ABSOLUTE MONOCYTE COUNT 0.6 /CUMM (0.10-0.60); EOSINOPHIL % 4.5 % (0-5); GRANULOCYTE % 71.2 % (42.2-75.2); HEMATOCRIT 23.1 % (42-52); MEAN CORPUSCULAR HGB CONC 30.6 G/DL (33.0-37.0); MEAN PLATELET VOLUME 7.6 FL (7.4-10.4); PLATELET COUNT 318 /CUMM (130-400); RBC DISTRIBUTION WIDTH 20.5 % (11.5-14.5); RED BLOOD CELL CT 3.44 /CUMM (4.70-6.10); WHITE BLOOD CELL COUNT 7.7 /CUMM (4.8-10.8)
--- NOTE | 2017-06-17 08:35 | PN- CRCU ---
Elissa Altman 06/17/17 0835: Subjective HPI/Critical Care Issues: -GI bleed most likely upper GI -Acute on chronic blood loss anemia -History of polysubstance abuse -History of hypertension and dyslipidemia -History of diabetes -History of alcohol abuse -History of asthma 24 hour events Patient was seen and examined this morning. He was lying comfortably on bed without any active complaints. He is 3 units packed red cell post transfusion. Denied any active GI bleed including bloody vomitus/coffee-ground emesis, fresh bleeding per rectum or melena. He denied any dizziness, headache, palpitations or chest pain at the moment. He complained of epigastric discomfort which is present for a long time. His vital signs remain stable with temperature 98.3, pulse 84, respiratory rate 20, blood pressure 150/80. After 3 units of packed red cell his H&H came up from a 5.2-7.1 and hematocrit 17.0-23.1. Objective Current Medications: Current Medications Sig/Marissa Start time Last Medication Dose Route Stop Time Status Admin Acetaminophen 325 MG Q8P PRN 06/16 1730 AC PO Acyclovir 400 MG TID 06/16 2100 AC 06/17 PO 08 Amoxicillin 500 MG BID 06/16 2099 AC 06/17 PO 06/19 0901 0821 Bisacodyl 5 MG ONE ONE 06/17 1999 DC PO 06/16 2000 Bisacodyl 5 MG ONE ONE 06/17 1999 DC 06/16 PO 06/16 Budesonide/ 2 PUF BID 06/16 2100 AC 06/17 Formoterol Fumarate INH 0822 Gabapentin 600 MG 4 TIMES/DAY 06/16 2099 AC 06/17 PO 0820 Insulin Aspart 0 TIDAC 06/16 1815 AC SC Nortriptyline HCl 50 MG QAM 06/17 0900 AC 06/17 PO 08 Nortriptyline HCl 100 MG QPM 06/16 2100 AC 06/16 PO 2047 Oxycodone HCl 15 MG Q8P PRN 06/16 1745 AC 06/17 PO 0821 Oxycodone HCl 0 .STK-MED ONE 06/16 1602 DC PO Oxycodone HCl 0 .STK-MED ONE 06/16 1602 DC PO Oxycodone HCl 15 MG ONCE ONE 06/16 1600 DC 06/16 PO 06/16 1601 1558 Oxymetazoline HCl 2 SPRAY BID 06/17 0900 AC 06/17 TOMMY 0821 Pantoprazole Sodium 40 MG BID 06/16 2100 AC 06/17 IV 0820 Pantoprazole Sodium 0 .STK-MED ONE 06/16 1546 DC IV Pantoprazole Sodium 40 MG ONCE ONE 06/16 1515 DC 06/16 Sodium Chloride 100 ML IV 06/16 2013 1545 Polyethylene Glycol 1 GAL ONCE ONE 06/16 2000 DC PO 06/16 2000 Pravastatin Sodium 20 MG 1700 06/17 1700 AC PO Sodium Chloride 2 SPRAY Q4P PRN 06/17 0800 AC TOMMY Sodium Chloride 1,000 ML Q10H 06/16 1800 AC 06/17 IV 0837 Sodium Chloride 1,000 ML BOLUS ONE 06/16 1515 DC 06/16 IV 06/16 1614 1513 Sodium Chloride 1,000 ML BOLUS ONE 06/16 1515 DC 06/16 IV 06/16 1614 1646 Vital Signs & I&O Last 24 Hrs of Vitals and I&O: Vital Signs Date Time Temp Pulse Resp B/P B/P Pulse O2 O2 Flow FiO2 Mean Ox Delivery Rate 06/17 0800 98.3 84 20 150/80 06/17 0600 68 13 146/76 06/17 0400 7.7 65 23 147/72 06/17 0200 70 9 122/63 06/17 0000 97.6 75 11 142/71 06/16 2300 97.6 75 11 144/72 99 Room Air Room Air 06/16 2200 74 11 137/65 06/17 1999 98.5 80 29 127/61 06/17 1999 99 Room Air Room Air 06/16 1857 98.9 70 11 138/77 100 Room Air 06/16 1820 98.5 82 17 147/77 97 Room Air 06/16 1659 98.4 76 18 148/68 98 Room Air 06/16 1642 98.4 78 17 133/63 97 Room Air 06/16 1406 97.0 112 20 134/60 98 Room Air Intake & Output 06/17 1600 06/17 0800 06/17 0000 Intake Total 1202 1065 Output Total Balance 1202 1065 Intake, Blood 350 700 Product Intake, IV 852 125 Intake, Oral 0 240 Number 0 0 Bowel Movements Patient 182 lb Weight Weight Bed scale Measurement Method Exam General Appearance: well developed/nourished, no apparent distress, alert, awake Head: atraumatic, normal appearance Neck: supple Respiratory: normal breath sounds, chest non-tender Cardiovascular: regular rate/rhythm Abdomen: soft, slight epigastric tenderness Back: normal inspection Extremities: normal inspection, no edema Results Last 24 Hrs of Lab Results: Laboratory Tests 06/17/17 0950: Urine Color Pending, Urine Clarity Pending, Urine pH Pending, Ur Specific [place] Pending, Urine Protein Pending, Urine Ketones Pending, Urine Nitrite Pending, Urine Bilirubin Pending, Urine Urobilinogen Pending, Ur Leukocyte Esterase Pending, Ur Microscopic Pending, Urine Hemoglobin Pending, Urine Glucose Pending 06/17/17 0950: Urine Opiates Screen 2681.00 H, Methadone Screen 49, Barbiturate Screen < 60, Ur Phencyclidine Scrn < 6.00, Amphetamines Screen < 100, U Benzodiazepines Scrn < 85, Urine Cocaine Screen 66, Urine Cannabis Screen < 5.00, Ur Random Creatinine Pending, Ur Random Sodium Pending, Ur Random Potassium Pending, Fraction Sodium Excret Pending 06/17/17 0356: Anion Gap 10, Estimated GFR > 60, Glucose 90, Calcium 8.7, Phosphorus 3.1, Magnesium 1.8, Total Bilirubin 0.5, AST 11 L, ALT 16 L, Troponin I < 0.01, Albumin 3.6, CBC w Diff MAN DIFF ORDERED, RBC 3.44 L, MCV 67.0 L, MCH 20.5 L, MCHC 30.6 L, RDW 20.5 H, MPV 7.6, Gran % 71.2, Lymphocytes % 16.1 L, Monocytes % 8.2, Eosinophils % 4.5, Basophils % 0, Absolute Granulocytes 5.5, Segmented Neutrophils 78 H, Band Neutrophils 1, Absolute Lymphocytes 1.2, Lymphocytes 13 L, Monocytes 5, Absolute Monocytes 0.6, Eosinophils 3, Absolute Eosinophils 0.3, Absolute Basophils 0, Platelet Estimate ADEQUATE, Hypochromic- Microcytic 2+, Basophilic Stippling 1+, Ovalocytes 1+ 06/16/172126: Troponin I < 0.01, CBC w Diff NO MAN DIFF REQ, RBC 3.17 L, MCV 66.7 L, MCH 19.8 L, MCHC 29.8 L, RDW 20.3 H, MPV 7.6, Gran % 70.1, Lymphocytes % 16.5 L, Monocytes % 9.6 H, Eosinophils % 3.3, Basophils % 0.5, Absolute Granulocytes 5.9, Absolute Lymphocytes 1.4, Absolute Monocytes 0.8 H, Absolute Eosinophils 0.3, Absolute Basophils 0 06/16/17 1455: Anion Gap 12, Estimated GFR 58 L, BUN/Creatinine Ratio 17.7, Glucose 100 H, Calcium 8.8, Iron 20 L, TIBC 434, Ferritin 4.2 L, Total Bilirubin 0.3, AST 12 L, ALT 14 L, Alkaline Phosphatase 48, Troponin I < 0.01, Total Protein 6.8, Albumin 3.9, Globulin 2.9, Albumin/Globulin Ratio 1.3, Lipase 63, PT 11.7, INR 1.07, APTT 32, CBC w Diff MAN DIFF ORDERED, RBC 2.71 L, MCV 62.8 L, MCH 19.2 L, MCHC 30.6 L, RDW 18.4 H, MPV 7.5, Gran % 75.2, Lymphocytes % 13.6 L, Monocytes % 8.3, Eosinophils % 2.9, Basophils % 0, Absolute Granulocytes 6.3, Absolute Lymphocytes 1.1 L, Absolute Monocytes 0.7 H, Absolute Eosinophils 0.2 , Absolute Basophils 0, Platelet Estimate ADEQUATE, Hypochromic-Microcytic 3+, Poikilocytosis FEW, Microcytic Cells 3+, Serum Alcohol < 10.0 Impression/Plan Impression/Plan Impression/Plan: Mr Gaona is a 51 year old man w/ a PMHx of GI bleed, polysubstance abuse, type 2 diabetes, hypertension, GERD is being evaluted for symptomatic anemia which likely from chronic blood loss, from possibly upper GI source. At the time of admission-vitals 97.0, pulse rate 112, respiration 20, blood pressure 134/60, pulse ox 98% on room air. Pertinent lab findings-W BC 8.4, hemoglobin 5.2 (last hemoglobin check 10/2016- 9.8), hematocrit 17.0, MCV 62.8, platelets 399. Sodium 135, potassium 3.6, chloride 97, carbon dioxide 26, anion gap 12, BUN 23, creatinine 1.3 (baseline 1.0), AST 12, AST 14, alkaline phosphatase 48, troponin I-0.01, INR 1.07, PTT 32; Serum alcohol less than 10. Last echocardiogram done in 2016- Normal size left ventricle. Borderline to mild concentric left ventricular hypertrophy. No obvious regional wall motion abnormalities. Normal left ventricular ejection fraction visually estimated at > 65%. "pseudonormal" filling pattern of the left ventricle for age (stage 2 diastolic dysfunction). Normal right ventricular size and function. Normal right atrial size. Mild left atrial dilatation. Trace mitral regurgitation. Trace tricuspid regurgitation. No evidence of pulmonary hypertension. Mildly dilated inferior vena cava. No evidence of obvious valvular vegetations on the mitral, aortic, tricuspid, or pulmonic valves. CT scan chest 10/26/2016- 1. No pulmonary embolus identified.2. Irregular consolidation in the basilar left lower lobe, suspicious forpneumonia in the proper clinical setting. Possible developing cavitation in the anterior left lower lobe. This may be reassessed on follow-up CT in approximately 3 months to evaluate for resolution. 3. Multiple mediastinal lymph nodes, with mild adenopathy in the subcarinal region. These may be reactive, and attention on follow-up is recommended. Problem list: #1 GI bleed #2 substance abuse #3 microcytic anemia, acute blood loss anemia #4 hypertension #5 type 2 diabetes #6 acute kidney injury #7 alcohol abuse #8 hyperlipidemia #9 history of asthma Etiology in this case is likely due to blood loss anemia, which could be chronic in his case given dysphagia, and lymphadenopathy found on previous CAT scans, weight loss-malignancy is not completely ruled out. Recent use of nonsteroidal anti-inflammatory agents, could have exacerbated his symptoms. Other causes such as malnutrition, decreased absorption due to celiac sprue or Crohn's disease can contribute or cause the symptoms. Plan: #1 respiratory- stable at this time. He has a history of asthma, Advair could be continued at this time. #2 infectious-does not seem to have any current source of infection, but is being treated for acute pharyngitis with amoxicillin, by his primary care physician which will be continued to complete the course. He should also be continued on acyclovir for the treatment of genital herpes. #3 circulatory-monitor blood pressure closely, given GI bleed. Currently his blood pressure remains in reasonable range between 120 and 140 systolic and we will restart his home medications. His 3 sets of troponin were negative and ACS was ruled out. #4 hematology-likely from chronic blood loss anemia. His H&H responded well to blood transfusions. He was transfused 3 units of packed red cells and his H&H came up from 5.2/17 to 7.1/23.1. We will recheck his H&H around 4 PM and if it remained stable we will monitor him every 12 hours for now and if needed we will transfuse him accordingly with target H&H of 7.0. #5 alimentary-likely source of blood loss is upper GI, which appears to be chronic. Malignancy, ulcer needs to be ruled out. Hold all nonsteroidal anti- inflammatories, including aspirin. --Upper endoscopy was done this morning that showed --Circumferential prepyloric/antral ulcer status post biopsies. No active source of bleeding was noticed Also small 2 cm hiatal hernia was noticed. There were deformed duodenal bulb suggestive of prior peptic ulcer disease. Grossly normal small bowel folds and random biopsies were taken. As patient refused anoscopy yesterday we will try to convince him today and if he can feel agreed to the procedure we will prepare his bowel with GoLYTELY and will make him nothing by mouth after 12 midnight in anticipation of colonoscopy tomorrow morning. If patient refused and H&H remained stable he would be okay to transfer to general medical floor and he has to follow-up with Dr. Mcgowan for biopsy results and diagnostic colonoscopy. #6 neurology-patient continues to be on chronic pain medications for back pain. Continue oxycodone 15 mg every day as needed. U tox were checked showed positive opiates but negative for cocaine, methadone or amphetamines.. Seizure precautions. [facility] protocol for alcohol withdrawal, at least for the next 24-48 hours. #7 metabolic-has acute kidney injury, likely from diarrhea or dehydration which is resolved. Replete electrolytes accordingly. Housekeeping: #1 DVT prophylaxis-alps only. #2 CODE STATUS-full code. #1 Central line- none #2 Arterial line- none #3 Alarcon catheter- none #4 Rectal tube- none #5 NG tube- none #6 IV/peripheral line- yes x 2 18g. 06/16/17 #7 IV drips- PRBCs #8 Vent settings: none #9 pressors none. Amy Ya 06/17/17 1238: Attending Addendum Attending Brief Note Pateinet sent from PCP after low h/h count. Takes over the counter NSAIDs. Patient found to have severe blood loss anemia possible GI bleed likely peptic ulcer disease. Hb >7 this am. S/P EGD today revealing peptic ulcer disease and biopsy taken by GI. Bowel prep as per GI. Change iv to PO PPI. Patient can be downgraded to telemetry. Advance diet as per GI.
--- NOTE | 2017-06-17 11:10 | Proc Note Endoscopy ---
Endoscopy Procedure Medical History: unchanged (see meditech consult) Mental Status: alert/oriented Heart/Lung Eval Prior to Sedation: within normal limits Candidate for Sedation? Yes Procedure Date: 06/17/17 Procedure Type: EGD w/biopsy Production Worker: Shay Mcgowan MD ASA Classification: III Indications: Anemia. Dysphagia and abdominal pain. Instrument: diagnostic gastroscope Meds Received: MAC Patient's Tolerance: good Complications: none Extent Reached: second part of duodenum Procedure: After getting written informed consent the patient was placed in the left lateral decubitus position with pulse oximetry, cardiac monitoring, and supplemental oxygen given. A bite block was inserted and IV sedation was given until the desired effect was achieved. A high definition upper Olympus endoscope was then inserted into the mouth and advanced to the second portion of the duodenum with little difficulty. Retroflexed views and photodocumentation was obtained. Findings: Esophagus: The esophageal mucosa was grossly normal in appearance and there was a normal-appearing Z line at 43 cm from the incisors. The hiatal narrowing was at 45 cm from the incisors accounting for a small 2 cm sliding hiatal hernia. There were no esophageal masses, ulcers, erosions, strictures, or significant furrowing appreciated. Stomach: Is a large circumferential ulcer around the pyloric channel the scope was able to traverse. Was no obvious corresponding mass, but the ulcer was irregular in appearance and potentially malignant. The remainder of the gastric mucosa was grossly normal in appearance. Retroflexed views revealed a small hiatal hernia without evident Demetrius erosions. Her obtained around the edges of the pyloric ulcer cold biopsy forceps and were sent to pathology for further evaluation and random biopsies were also obtained from the antrum and body of the stomach with cold biopsy forceps and were sent to pathology for further evaluation. Duodenum: The duodenal bulb and sweep was moderately deformed suggestive of prior peptic ulcer disease at the duodenal folds were grossly normal in appearance. Random biopsies were obtained from the second portion of the duodenum and were sent to pathology for further evaluation. Impression: 1. Circumferential prepyloric/antral ulcer status post biopsies. 2. Small 2 cm hiatal hernia. 3. Deformed duodenal bulb suggestive of prior peptic ulcer disease status post random gastric biopsies. 4. Grossly normal small bowel folds status post random biopsies. Recommendations: 1. He should follow up the pathology results me as an outpatient. 2. He should be placed on an oral PPI. 3. He should avoid NSAIDs. 4. If the patient is willing would recommend proceeding with a bowel prep tonight for a diagnostic colonoscopy tomorrow considering the difficulty that has been encountered with attempting to perform this as an outpatient. 5. If he refuses a bowel prep would then transfer him to the medical floor and attempts will be made to pursue an outpatient colonoscopy provided the gastric biopsies are negative for malignancy. CC: Radha LOPEZ,Idalia Valencia
[2017-06-17 15:07] LABS: ABSOLUTE BASOPHIL COUNT 0 /CUMM (0.0-0.2); ABSOLUTE EOSINOPHIL COUNT 0 /CUMM (0.0-0.7); ABSOLUTE GRANULOCYTE CT 5.2 /CUMM (1.4-6.5); ABSOLUTE LYMPH COUNT 0.6 /CUMM (1.2-3.4); ABSOLUTE MONOCYTE COUNT 0.3 /CUMM (0.10-0.60); BASOPHIL % 0 % (0.0-2.0); EOSINOPHIL % 0.6 % (0-5); GRANULOCYTE % 85.2 % (42.2-75.2); HEMATOCRIT 25.4 % (42-52); MEAN CORPUSCULAR HGB 20.4 PG (27.0-31.0); MEAN CORPUSCULAR HGB CONC 30.3 G/DL (33.0-37.0); MEAN CORPUSCULAR VOLUME 67.4 FL (80.0-94.0); MEAN PLATELET VOLUME 7.6 FL (7.4-10.4); PLATELET COUNT 361 /CUMM (130-400); RBC DISTRIBUTION WIDTH 20.1 % (11.5-14.5); RED BLOOD CELL CT 3.77 /CUMM (4.70-6.10); WHITE BLOOD CELL COUNT 6.1 /CUMM (4.8-10.8)
[2017-06-18 06:23] VITALS: BP 144/80
--- NOTE | 2017-06-18 07:31 | PN- Housestaff ---
Marysol Jefferson MD,[facility] 06/18/17 0731: Subjective Follow-up For: -GI bleed most likely upper GI -Acute on chronic blood loss anemia -History of polysubstance abuse -History of hypertension and dyslipidemia -History of diabetes -History of alcohol abuse -History of asthma Subjective: Patient visited today, was sitting at the bedside, was alert and oriented. transferred from ICU yesterday as refused to persue with Colonoscopy. Patient was complaining of back pain, noted this is chronic . Extra dose of oral dilaudid and IV MS was administered. Patient has history of substance abuse. No fever or chills, no shortness of breathing, no chest pain. HB this morning was 6.8 Patient was requesting to be discharged. Had long conversation with patient regarding risks related to leaving hospital considering the Hb of 6.8, the need for blood transfusion and risk of mortality. Patient was capacitated. Family called and wanted to keep patient in hospital, explained that if patient leave would be AMA, but patient had capacity and could make the desicions. Situation was disscussed with attending Dr Ya and Resident land conservation specialist Dr Caldwell. Review of Systems Constitutional: Reports: see HPI. Objective Last 24 Hrs of Vital Signs/I&O Vital Signs Date Time Temp Pulse Resp B/P B/P Pulse O2 O2 Flow FiO2 Mean Ox Delivery Rate 06/18 0623 98.5 78 20 144/80 99 06/17 1926 98.3 70 18 152/84 98 Room Air 06/17 1600 98.7 70 18 126/62 06/17 1600 98.7 70 18 126/62 98 Room Air 06/17 1200 98.2 678 16 145/70 06/17 1200 98 Room Air Intake & Output 06/18 1600 06/18 0800 06/18 0000 Intake Total 480 600 Output Total Balance 480 600 Intake, Oral 480 600 Physical Exam General Appearance: Alert, Oriented X3, Cooperative, No Acute Distress Skin: Pale Skin Temp/Moisture Exam: Warm/Dry Sepsis Skin Exam (color): Normal for Ethnicity HEENT: Atraumatic Cardiovascular: Normal S1, Normal S2 Lungs: Normal Air Movement Current Medications: Current Medications Sig/Marissa Start time Last Medication Dose Route Stop Time Status Admin Acetaminophen 325 MG Q8P PRN 06/16 1730 AC PO Acyclovir 400 MG TID 06/16 2100 AC 06/18 PO 0842 Amoxicillin 500 MG BID 06/16 2100 AC 06/18 PO 06/19 0901 0842 Budesonide/ 2 PUF BID 06/16 2100 AC 06/17 Formoterol Fumarate INH 0822 Cyclobenzaprine HCl 10 MG ONCE ONE 06/17 1800 DC 06/17 PO 06/17 1801 1805 Gabapentin 600 MG 4 TIMES/DAY 06/16 2100 AC 06/18 PO 0841 Hydromorphone HCl 2 MG ONCE ONE 06/18 0900 DC 06/18 PO 06/18 0901 0903 Insulin Aspart 0 TIDAC 06/16 1815 AC SC Lidocaine 1 PAT DAILY 06/17 2115 AC EXT Morphine Sulfate 2 MG ONCE ONE 06/18 0945 DC IV 06/18 0946 Nicotine 21 MG ONCE ONE 06/17 2045 DC 06/17 TOP 06/17 2045 204 Nicotine 21 MG DAILY 06/17 1338 AC 06/18 TOP 0842 Nortriptyline HCl 50 MG QAM 06/17 0900 AC 06/18 PO 0841 Nortriptyline HCl 100 MG QPM 06/16 2100 AC 06/17 PO 2019 Oxycodone HCl 15 MG Q8P PRN 06/16 1745 AC 06/18 PO 0404 Oxycodone/ 1 TAB ONCE ONE 06/18 0200 DC Acetaminophen PO 06/18 0201 Oxycodone/ 2 TAB ONCE ONE 06/17 1915 DC 06/18 Acetaminophen PO 06/17 1916 0207 Oxymetazoline HCl 2 SPRAY BID 06/17 0900 AC 06/17 TOMMY 0821 Pantoprazole Sodium 40 MG BID 06/16 2100 AC 06/18 IV 0842 Pravastatin Sodium 20 MG 1700 06/17 1700 AC 06/17 PO 1804 Sodium Chloride 2 SPRAY Q4P PRN 06/17 0800 AC TOMMY Sodium Chloride 1,000 ML Q10H 06/16 1800 DC 06/17 IV 0837 Last 24 Hrs of Lab/Dimas Results Last 24 Hrs of Labs/Mics: Laboratory Tests 06/18/17 0633: Anion Gap 10, Estimated GFR > 60, BUN/Creatinine Ratio 11.7, CBC w Diff Pending, WBC Pending, RBC Pending, Hgb Pending, Hct Pending, MCV Pending, MCH Pending, MCHC Pending, RDW Pending, Plt Count Pending, MPV Pending, Gran % Pending, Lymphocytes % Pending, Monocytes % Pending, Eosinophils % Pending, Basophils % Pending, Absolute Granulocytes Pending, Absolute Lymphocytes Pending, Absolute Monocytes Pending, Absolute Eosinophils Pending, Absolute Basophils Pending 06/17/17 1450: CBC w Diff MAN DIFF ORDERED, RBC 3.77 L, MCV 67.4 L, MCH 20.4 L, MCHC 30.3 L , RDW 20.1 H, MPV 7.6, Gran % 85.2 H, Lymphocytes % 9.7 L, Monocytes % 4.5, Eosinophils % 0.6, Basophils % 0, Absolute Granulocytes 5.2, Segmented Neutrophils 84 H, Absolute Lymphocytes 0.6 L, Lymphocytes 11 L, Monocytes 4, Absolute Monocytes 0.3, Eosinophils 1, Absolute Eosinophils 0, Absolute Basophils 0, Platelet Estimate ADEQUATE, Hypochromic-Microcytic 2+, Poikilocytosis 1+, Anisocytosis 2+, Microcytic Cells 2+, Ovalocytes FEW, Elliptocytes FEW Assessment/Plan Assessment: Mr Gaona is a 51 year old man w/ a PMHx of GI bleed, polysubstance abuse, type 2 diabetes, hypertension, GERD is being evaluted for symptomatic anemia which likely from chronic blood loss, from possibly upper GI source. At the time of admission-vitals 97.0, pulse rate 112, respiration 20, blood pressure 134/60, pulse ox 98% on room air. Pertinent lab findings-W BC 8.4, hemoglobin 5.2 (last hemoglobin check 10/2016- 9.8), hematocrit 17.0, MCV 62.8, platelets 399. Sodium 135, potassium 3.6, chloride 97, carbon dioxide 26, anion gap 12, BUN 23, creatinine 1.3 (baseline 1.0), AST 12, AST 14, alkaline phosphatase 48, troponin I-0.01, INR 1.07, PTT 32; Serum alcohol less than 10. Last echocardiogram done in 2016- Normal size left ventricle. Borderline to mild concentric left ventricular hypertrophy. No obvious regional wall motion abnormalities. Normal left ventricular ejection fraction visually estimated at > 65%. "pseudonormal" filling pattern of the left ventricle for age (stage 2 diastolic dysfunction). Normal right ventricular size and function. Normal right atrial size. Mild left atrial dilatation. Trace mitral regurgitation. Trace tricuspid regurgitation. No evidence of pulmonary hypertension. Mildly dilated inferior vena cava. No evidence of obvious valvular vegetations on the mitral, aortic, tricuspid, or pulmonic valves. CT scan chest 10/26/2016- 1. No pulmonary embolus identified.2. Irregular consolidation in the basilar left lower lobe, suspicious forpneumonia in the proper clinical setting. Possible developing cavitation in the anterior left lower lobe. This may be reassessed on follow-up CT in approximately 3 months to evaluate for resolution. 3. Multiple mediastinal lymph nodes, with mild adenopathy in the subcarinal region. These may be reactive, and attention on follow-up is recommended. Patient was initially admitted to ICU, was then transfered to after stablization. GIB microcytic anemia, acute blood loss anemia likely from chronic blood loss anemia. His H&H responded well to blood transfusions. He was transfused 3 units of packed red cells and his H&H came up from 5.2/17 to 7.1/23.1. HB today was 6.8, patient refused to recieve blood and requested to leave hospital * Upper endoscopy was done on 06/18/17: Circumferential prepyloric/antral ulcer status post biopsies. No active source of bleeding was noticed Also small 2 cm hiatal hernia was noticed. There were deformed duodenal bulb suggestive of prior peptic ulcer disease. Grossly normal small bowel folds and random biopsies were taken. patient refused colonoscopy and preps. - patient requested to leave hospital AMA - would need to follow with Dr Mcgowan for biopsy results Chronic back pain -patient continues to be on chronic pain medications for back pain. Continue oxycodone 15 mg every day as needed. U tox were checked showed positive opiates but negative for cocaine, methadone or amphetamines.. Seizure precautions. - Dilaudid PO once and MS IV 2mg once was ordered to control the pain KVNG -has acute kidney injury, likely from diarrhea or dehydration which is resolved. Chronic medical conditions: DM, HTN, astma - continue home medication Housekeeping: #1 DVT prophylaxis-alps only. #2 CODE STATUS-full code. Problem List: 1. GI bleed 2. Opiate dependence Pain Ratin Pain Location: Back Pain Goal: Pain 4 or less Pain Plan: added dilaudid and MS Tomorrow's Labs & Rationales: CBC BEP Amy Ya 06/18/17 1248: Attending MD Review Statement Attending Statement Attending MD Statement: examined this patient, discuss w/resident/PA/STRIKE ON MACHINE OPERATOR, agreed w/resident/PA/STRIKE ON MACHINE OPERATOR, discussed with family, reviewed EMR data (avail), discussed with nursing, discussed with case mgmt, reviewed images, amended to note Attending Assessment/Plan: Pateinet sent from PCP after low h/h count. Takes over the counter NSAIDs. Patient found to have severe blood loss anemia possible GI bleed likely peptic ulcer disease. S/P EGD 06/17/17 revealing peptic ulcer disease with no active bleeding and biopsy taken by GI. Patient c/o back pain lumbar area tender to palpation. Requests pain meds , dilaudid not helping, vital stable. Hb 6.8 this am. Transfuse 1 unit of PRBC, obtian CT abd/pelvis with contrast. Bowel prep as per GI. Change iv to PO PPI. Patient wanted to leave AMA. Explained him risk/ benefits of ongoing managment. Advance diet. gi/dvt prophaylxis ambulatory
[2017-06-18 08:36] LABS: ABSOLUTE BASOPHIL COUNT 0 /CUMM (0.0-0.2); ABSOLUTE EOSINOPHIL COUNT 0.1 /CUMM (0.0-0.7); ABSOLUTE MONOCYTE COUNT 0.5 /CUMM (0.10-0.60); BASOPHIL % 0 % (0.0-2.0); EOSINOPHIL % 0.7 % (0-5); GRANULOCYTE % 79.1 % (42.2-75.2); HEMATOCRIT 22.1 % (42-52); MEAN CORPUSCULAR HGB 20.7 PG (27.0-31.0); MEAN CORPUSCULAR HGB CONC 30.8 G/DL (33.0-37.0); MEAN CORPUSCULAR VOLUME 67.4 FL (80.0-94.0); MEAN PLATELET VOLUME 8.1 FL (7.4-10.4); PLATELET COUNT 315 /CUMM (130-400); RBC DISTRIBUTION WIDTH 20.6 % (11.5-14.5); RED BLOOD CELL CT 3.29 /CUMM (4.70-6.10); WHITE BLOOD CELL COUNT 7.6 /CUMM (4.8-10.8)
--- NOTE | 2017-06-18 10:51 | Patient Discharge Instructions ---
Discharge Instructions General Discharge Information You were seen/treated for: GI bleeding You had these procedures: Upper GI endoscopy Watch for these problems: Severe abdominal pain, change in stool color, bleeding, hypertension, dizziness, chest pain, shortness of breathing or worsening of any other symptoms Special Instructions: Please follow with your PCP within next week, please note some of your blood pressure medicatoins as well as asprin were stopped for now, it is very important to follow and resume your medicaitons. Please follow with your gauger chief next weak for biopsy results and follow colonoscopy. Please also note, your have anemia and you needed to stay in hospital for monitoring and transfusion, come back to hospital immedietly if symtpoms worsen. [place] continue to take your esmoprazole. Please follow with pain specialist and ortho surgeon as instructed. Diet Continue normal diet: No Recommended Diet: Diabetic Activity Full Activity/No Limits: No Activity Self Limited: Yes Acute Coronary Syndrome Inclusion Criteria At DC or during hospital stay patient has or had the following: ACS DIAGNOSIS No Discharge Core Measures Meds if any: Prescribed or Continued at Discharge Meds if any: NOT Prescribed or Continued at Discharge Congestive Heart Failure Inclusion Criteria At DC or during hospital stay patient has or had the following: CHF DIAGNOSIS No Discharge Core Measures Meds if any: Prescribed or Continued at Discharge Meds if any: NOT Prescribed or Continued at Discharge Cerebrovascular accident Inclusion Criteria At DC or during hospital stay patient has or had the following: CVA/TIA Diagnosis No Discharge Core Measures Meds if any: Prescribed or Continued at Discharge Meds if any: NOT Prescribed or Continued at Discharge Venous thromboembolism Inclusion Criteria VTE Diagnosis No VTE Type NONE VTE Confirmed by (Test) NONE Discharge Core Measures - Per Current guidelines, there needs to be overlap - treatment for the first 5 days of Warfarin therapy. - If discharged on Warfarin prior to 5 days of - overlap therapy, the patient will need to be - assessed for post discharge needs including - *Post discharge parental anticoagulation - *Warfarin and/or parental anticoagulation education - *Follow up date to check INR post discharge At least 5 days overlap therapy as Inpatient Yes Meds if any: Prescribed or Continued at Discharge Note: Overlap Therapy is Warfarin and Anticoagulant Meds if any: NOT Prescribed or Continued at Discharge
--- NOTE | 2017-06-18 13:01 | CT SCAN REPORT ---
EXAMINATION: CT ABDOMEN AND PELVIS WITH CONTRAST CLINICAL INFORMATION: Back pain. Acute blood loss. Anemia. Gastric ulcer. COMPARISON: No relevant prior imaging. TECHNIQUE: Multidetector volumetric imaging was performed of the abdomen and pelvis following IV administration of 95 mL of Optiray 320 intravenous contrast. Sagittal and coronal reformatted images were obtained on the technologist's workstation. DLP: 344.84 mGy-cm FINDINGS: LUNG BASES: There is minimal bibasilar subsegmental atelectasis. No pleural or pericardial effusion. LIVER, GALLBLADDER, AND BILIARY TREE: Liver attenuation is homogeneous with no evidence of a discrete hepatic parenchymal mass. Grossly no intrahepatic or extrahepatic biliary ductal dilatation. The gallbladder is unremarkable with no evidence of radiopaque gallstones, gallbladder wall thickening, or obvious pericholecystic inflammatory changes. PANCREAS: Unremarkable. SPLEEN: Unremarkable. ADRENAL GLANDS: Unremarkable. KIDNEYS AND URETERS: Kidneys demonstrate symmetric corticomedullary enhancement characteristics. No discrete renal parenchymal mass. No abnormal perinephric inflammation or collection. No hydronephrosis. No worrisome mass or calcification is visualized along the expected course of the right or left ureter. BLADDER: Unremarkable. GASTROINTESTINAL TRACT: The stomach and small bowel are unremarkable. No free intraperitoneal air. There is simple fluid that layers within the pelvis best illustrated on axial image 74 of 92 series 2, the source of which is uncertain on this examination. There is no evidence of obstruction. Numerous diverticula are visualized primarily within the descending and sigmoid colon. No evidence of acute diverticulitis. Normal appendix. ABDOMINAL WALL: No significant hernia is appreciated. LYMPH NODES: There are no pathologically enlarged mesenteric or retroperitoneal lymph nodes. VASCULAR: The abdominal aorta and inferior vena cava are unremarkable. PELVIC VISCERA: Unremarkable. OSSEOUS STRUCTURES: There is no acute osseous finding. No worrisome lytic or blastic osseous lesion. There is degenerative spondylosis at multiple levels, most advanced at the levels of L2-L3 and L5-S1. Grossly no evidence of canal compromise. IMPRESSION: There is a small amount of simple fluid that layers within the pelvis, the source of which is uncertain on the basis of this examination. No discrete inflammatory changes. No hydronephrosis and no evidence of obstructive uropathy. No discrete drainable fluid collection. No evidence of small bowel obstruction.
[2017-06-18 15:39] VITALS: BP 132/74
[2017-06-18 20:00] VITALS: BP 132/74
[2017-06-18 21:26] VITALS: BP 130/70
[2017-06-19 06:28] VITALS: BP 134/78
--- NOTE | 2017-06-19 08:14 | PN- Housestaff ---
Marysol Jefferson MD,Ami 06/19/17 0814: Subjective Follow-up For: -GI bleed most likely upper GI -Acute on chronic blood loss anemia -History of polysubstance abuse -History of hypertension and dyslipidemia -History of diabetes -History of alcohol abuse -History of asthma Subjective: Patient visited today, was lying in bed in no acute distress, was alert and oriented. Patient was complaining of chronic back pain. No fever or chills, no shortness of breathing, no chest pain, no other events. Decided to monitor patient for 1 more day for blood count and discharged tomorrow. Review of Systems Constitutional: Reports: see HPI. Objective Last 24 Hrs of Vital Signs/I&O Vital Signs Date Time Temp Pulse Resp B/P B/P Pulse O2 O2 Flow FiO2 Mean Ox Delivery Rate 06/19 0528 97.9 78 18 134/78 96 06/19 0000 99 Room Air 06/18 2126 98.6 80 18 130/70 99 Room Air 06/18 2000 98.7 76 20 132/74 06/18 1539 98.7 76 20 132/74 99 Room Air Intake & Output 06/19 1600 06/19 0800 06/19 0000 Intake Total 480 250 Output Total Balance 480 250 Intake, IV 0 10 Intake, Oral 480 240 Number 0 0 Bowel Movements Physical Exam General Appearance: Alert, Oriented X3, Cooperative, No Acute Distress Skin Temp/Moisture Exam: Warm/Dry HEENT: Atraumatic, EOMI Cardiovascular: Normal S1, Normal S2 Lungs: Clear to Auscultation, Normal Air Movement Abdomen: Soft, No Tenderness Neurological: Normal Speech Extremities: No Edema, Complained of back pain Current Medications: Current Medications Sig/Marissa Start time Last Medication Dose Route Stop Time Status Admin Acetaminophen 325 MG Q8P PRN 06/16 1730 AC PO Acetaminophen/ 1 TAB Q4P PRN 06/19 0815 AC 06/19 Butalbital/Caffeine PO 1010 Acyclovir 400 MG TID 06/16 2099 AC 06/19 PO 1308 Amoxicillin 500 MG BID 06/16 2099 DC 06/19 PO 06/19 0901 0806 Budesonide/ 2 PUF BID 06/16 2099 AC 06/18 Formoterol Fumarate 2010 Chlorhexidine 1 GM .STK-MED ONE 06/19 0732 DC Gluconate TOP 06/19 0733 Gabapentin 600 MG 4 TIMES/DAY 06/16 2099 AC 06/19 PO 1308 Insulin Aspart 0 TIDAC 06/16 1815 AC SC Lidocaine 1 PAT DAILY 06/17 2115 AC 06/19 EXT 0806 Morphine Sulfate 2 MG ONCE ONE 06/19 0815 DC 06/19 IV 06/19 0816 0824 Nicotine 21 MG DAILY 06/17 1338 AC 06/19 TOP 0806 Nortriptyline HCl 50 MG QAM 06/17 0900 AC 06/19 PO 0806 Nortriptyline HCl 100 MG QPM 06/16 2100 AC 06/18 PO 2010 Omeprazole 40 MG DAILY AC 06/19 0700 AC 06/19 PO 0622 Oxycodone HCl 15 MG Q4P PRN 06/19 0930 AC 06/19 PO 1311 Oxycodone HCl 15 MG Q8P PRN 06/16 1745 DC 06/19 PO 0623 Oxymetazoline HCl 2 SPRAY BID 06/17 0900 AC 06/17 TOMMY 0821 Pantoprazole Sodium 40 MG BID 06/16 2100 DC 06/18 IV 0842 Pravastatin Sodium 20 MG 1700 06/17 1700 AC 06/18 PO 2009 Sodium Chloride 2 SPRAY Q4P PRN 06/17 0800 AC TOMMY Last 24 Hrs of Lab/Dimas Results Last 24 Hrs of Labs/Mics: Laboratory Tests 06/19/17 0755: Anion Gap 13, Estimated GFR > 60, BUN/Creatinine Ratio 10.0, CBC w Diff NO MAN DIFF REQ, RBC 3.69 L, MCV 69.7 L, MCH 21.3 L, MCHC 30.6 L, RDW 22.8 H, MPV 8.0, Gran % 83.0 H, Lymphocytes % 10.5 L, Monocytes % 5.8, Eosinophils % 0.7, Basophils % 0, Absolute Granulocytes 6.8 H, Absolute Lymphocytes 0.9 L, Absolute Monocytes 0.5, Absolute Eosinophils 0.1, Absolute Basophils 0 Assessment/Plan Assessment: Mr Gaona is a 51 year old man w/ a PMHx of GI bleed, polysubstance abuse, type 2 diabetes, hypertension, GERD is being evaluted for symptomatic anemia which likely from chronic blood loss, from possibly upper GI source. At the time of admission-vitals 97.0, pulse rate 112, respiration 20, blood pressure 134/60, pulse ox 98% on room air. Pertinent lab findings-W BC 8.4, hemoglobin 5.2 (last hemoglobin check 10/2016- 9.8), hematocrit 17.0, MCV 62.8, platelets 399. Sodium 135, potassium 3.6, chloride 97, carbon dioxide 26, anion gap 12, BUN 23, creatinine 1.3 (baseline 1.0), AST 12, AST 14, alkaline phosphatase 48, troponin I-0.01, INR 1.07, PTT 32; Serum alcohol less than 10. Last echocardiogram done in 2016- Normal size left ventricle. Borderline to mild concentric left ventricular hypertrophy. No obvious regional wall motion abnormalities. Normal left ventricular ejection fraction visually estimated at > 65%. "pseudonormal" filling pattern of the left ventricle for age (stage 2 diastolic dysfunction). Normal right ventricular size and function. Normal right atrial size. Mild left atrial dilatation. Trace mitral regurgitation. Trace tricuspid regurgitation. No evidence of pulmonary hypertension. Mildly dilated inferior vena cava. No evidence of obvious valvular vegetations on the mitral, aortic, tricuspid, or pulmonic valves. CT scan chest 10/26/2016- 1. No pulmonary embolus identified.2. Irregular consolidation in the basilar left lower lobe, suspicious forpneumonia in the proper clinical setting. Possible developing cavitation in the anterior left lower lobe. This may be reassessed on follow-up CT in approximately 3 months to evaluate for resolution. 3. Multiple mediastinal lymph nodes, with mild adenopathy in the subcarinal region. These may be reactive, and attention on follow-up is recommended. Patient was initially admitted to ICU, was then transfered to after stablization. GIB microcytic anemia, acute blood loss anemia likely from chronic blood loss anemia. His H&H responded well to blood transfusions. Overall patient recieved 4 units of PRBC while in hospital. * Upper endoscopy was done on 06/18/17: Circumferential prepyloric/antral ulcer status post biopsies. No active source of bleeding was noticed Also small 2 cm hiatal hernia was noticed. There were deformed duodenal bulb suggestive of prior peptic ulcer disease. Grossly normal small bowel folds and random biopsies were taken. patient refused colonoscopy and preps. Patient needs to follow with Dr Mcgowan in outpatient to follow biopsy results and do conoloscopy. - We will monitor patient for Hb count and if stable discharge tomorrow Chronic back pain Patient continues to be on chronic pain medications for back pain. U tox were checked showed positive opiates but negative for cocaine, methadone or amphetamines. - Pain control was made with oxycodone q4 - pain specialist referral [facility] -has acute kidney injury, likely from diarrhea or dehydration which was resolved before discharge. Chronic medical conditions: DM, HTN, astma - continue home medication Housekeeping: #1 DVT prophylaxis-alps only. #2 CODE STATUS-full code. Problem List: 1. GIB (gastrointestinal bleeding) 2. Chronic back pain Pain Ratin Pain Location: backpain Pain Goal: Pain 4 or less Pain Plan: Oxycodone q4 Tomorrow's Labs & Rationales: KATLIN Lynch MD,[place] 06/19/17 1456: Attending MD Review Statement Attending Statement Attending MD Statement: examined this patient, discuss w/resident/PA/HEALTH SAFETY AND ENVIRONMENT MANAGER, agreed w/resident/PA/HEALTH SAFETY AND ENVIRONMENT MANAGER, reviewed EMR data (avail), discussed with nursing, discussed with case mgmt, amended to note Attending Assessment/Plan: Patient seen and examined. Lying in bed. He is frustrated about still being in the hospital and the heart healthy diet he was placed on. He is also refusing to undergo colonoscopy stating that he does not want to undergo a bowel prep. He did receive 1 unit of blood yesterday. We will need to monitor hemoglobin level over the course of today to determine if his hemoglobin level is indeed stable or if he will require further transfusion. We did explain to the patient that although we did find ulcerations during the EGD, it is prudent to do a colonoscopy as well to rule out any lower gastrointestinal causes of blood loss. He remains adamant on not undergoing bowel prep or colonoscopy. Recommendations: -Monitor H&H over the course of the day. If stable tomorrow he may be discharged home. -Patient should follow-up with gastroenterology service as an outpatient for results of biopsies taken. -Consideration should be given to perform an outpatient PillCam test if the patient continues to refuse colonoscopy.
[2017-06-19 08:46] LABS: ABSOLUTE BASOPHIL COUNT 0 /CUMM (0.0-0.2); ABSOLUTE EOSINOPHIL COUNT 0.1 /CUMM (0.0-0.7); ABSOLUTE GRANULOCYTE CT 6.8 /CUMM (1.4-6.5); ABSOLUTE LYMPH COUNT 0.9 /CUMM (1.2-3.4); ABSOLUTE MONOCYTE COUNT 0.5 /CUMM (0.10-0.60); BASOPHIL % 0 % (0.0-2.0); EOSINOPHIL % 0.7 % (0-5); HEMATOCRIT 25.7 % (42-52); MEAN CORPUSCULAR HGB 21.3 PG (27.0-31.0); MEAN CORPUSCULAR HGB CONC 30.6 G/DL (33.0-37.0); MEAN CORPUSCULAR VOLUME 69.7 FL (80.0-94.0); PLATELET COUNT 335 /CUMM (130-400); RBC DISTRIBUTION WIDTH 22.8 % (11.5-14.5); RED BLOOD CELL CT 3.69 /CUMM (4.70-6.10); WHITE BLOOD CELL COUNT 8.2 /CUMM (4.8-10.8)
[2017-06-19 14:50] VITALS: BP 140/80
[2017-06-19 20:20] VITALS: BP 152/84
[2017-06-20 07:06] VITALS: BP 148/88
--- NOTE | 2017-06-20 07:47 | PN- Housestaff ---
Marysol Jefferson MD,Ami 06/20/17 0746: Subjective Follow-up For: -GI bleed most likely upper GI -Acute on chronic blood loss anemia -History of polysubstance abuse -History of hypertension and dyslipidemia -History of diabetes -History of alcohol abuse -History of asthma Subjective: Patient visited today, was lying in bed in no acute distress, was alert and oriented. reported relative contolled pain. No fever or chills, no shortness of breathing, no chest pain, no other events. Requesting to be discharged. Review of Systems Constitutional: Reports: see HPI. Objective Last 24 Hrs of Vital Signs/I&O Vital Signs Date Time Temp Pulse Resp B/P B/P Pulse O2 O2 Flow FiO2 Mean Ox Delivery Rate 06/20 1056 144/88 06/20 1056 144/88 06/20 0706 98.3 64 18 148/88 96 06/19 2020 98.5 81 18 152/84 97 Room Air 06/19 1450 98.5 67 20 140/80 94 Room Air Intake & Output 06/20 1600 06/20 0800 06/20 0000 Intake Total 120 720 Output Total Balance 120 720 Intake, Oral 120 720 Number 0 Bowel Movements Physical Exam General Appearance: Alert, Oriented X3, Cooperative, No Acute Distress Skin: No Significant Lesion Skin Temp/Moisture Exam: Warm/Dry Sepsis Skin Exam (color): Normal for Ethnicity HEENT: Atraumatic Cardiovascular: Regular Rate, Normal S1, Normal S2 Lungs: Normal Air Movement Abdomen: Soft, No Tenderness Neurological: grossly no change compared to yesterday. Extremities: No Edema Current Medications: Current Medications Sig/Marissa Start time Last Medication Dose Route Stop Time Status Admin Acetaminophen 325 MG Q8P PRN 06/16 1730 DCD PO Acetaminophen/ 1 TAB Q4P PRN 06/19 0815 DCD 06/19 Butalbital/Caffeine PO 1010 Acyclovir 400 MG TID 06/16 2099 DCD 06/20 PO 0813 Budesonide/ 2 PUF BID 06/16 2099 DCD 06/18 Formoterol Fumarate 2010 Gabapentin 600 MG 4 TIMES/DAY 06/16 2099 DCD 06/20 PO 0813 Insulin Aspart 0 TIDAC 06/16 1815 DCD SC Lidocaine 1 PAT DAILY 06/17 2114 DCD 06/19 EXT 0806 Losartan Potassium 50 MG DAILY 06/20 0900 DCD 06/20 PO 1056 Metoprolol Succinate 25 MG DAILY 06/20 0900 DCD 06/20 PO 1056 Morphine Sulfate 4 MG .STK-MED ONE 06/20 0044 DC IM 06/20 0045 Nicotine 21 MG DAILY 06/17 1338 DCD 06/20 TOP 0813 Nortriptyline HCl 50 MG QAM 06/17 0900 DCD 06/20 PO 0813 Nortriptyline HCl 100 MG QPM 06/16 2100 DCD 06/19 PO 2110 Omeprazole 40 MG DAILY AC 06/19 0700 DCD 06/20 PO 0645 Oxycodone HCl 15 MG Q4P PRN 06/19 0930 DCD 06/20 PO 1104 Oxymetazoline HCl 2 SPRAY BID 06/17 0900 DCD 06/17 TOMMY 0821 Patient Medication 1 ED ONE ONE 06/19 1715 DC 06/19 Teaching ED 06/19 1716 1719 Pravastatin Sodium 20 MG 1700 06/17 1700 DCD 06/19 PO 1718 Senna/Docusate Sodium 1 TAB DAILY 06/20 0945 DCD 06/20 PO 1056 Sodium Chloride 2 SPRAY Q4P PRN 06/17 0800 DCD TOMMY Last 24 Hrs of Lab/Dimas Results Last 24 Hrs of Labs/Mics: Laboratory Tests 06/20/17 0636: Anion Gap 13, Estimated GFR > 60, BUN/Creatinine Ratio 12.5, CBC w Diff NO MAN DIFF REQ, RBC 3.74 L, MCV 70.3 L, MCH 21.6 L, MCHC 30.7 L, RDW 23.4 H, MPV 8.3, Gran % 71.1, Lymphocytes % 18.6 L, Monocytes % 8.8, Eosinophils % 1.5, Basophils % 0, Absolute Granulocytes 5.6, Absolute Lymphocytes 1.5, Absolute Monocytes 0.7 H, Absolute Eosinophils 0.1, Absolute Basophils 0 Assessment/Plan Assessment: Mr Gaona is a 51 year old man w/ a PMHx of GI bleed, polysubstance abuse, type 2 diabetes, hypertension, GERD is being evaluted for symptomatic anemia which likely from chronic blood loss, from possibly upper GI source. At the time of admission-vitals 97.0, pulse rate 112, respiration 20, blood pressure 134/60, pulse ox 98% on room air. Pertinent lab findings-W BC 8.4, hemoglobin 5.2 (last hemoglobin check 10/2016- 9.8), hematocrit 17.0, MCV 62.8, platelets 399. Sodium 135, potassium 3.6, chloride 97, carbon dioxide 26, anion gap 12, BUN 23, creatinine 1.3 (baseline 1.0), AST 12, AST 14, alkaline phosphatase 48, troponin I-0.01, INR 1.07, PTT 32; Serum alcohol less than 10. Last echocardiogram done in 2016- Normal size left ventricle. Borderline to mild concentric left ventricular hypertrophy. No obvious regional wall motion abnormalities. Normal left ventricular ejection fraction visually estimated at > 65%. "pseudonormal" filling pattern of the left ventricle for age (stage 2 diastolic dysfunction). Normal right ventricular size and function. Normal right atrial size. Mild left atrial dilatation. Trace mitral regurgitation. Trace tricuspid regurgitation. No evidence of pulmonary hypertension. Mildly dilated inferior vena cava. No evidence of obvious valvular vegetations on the mitral, aortic, tricuspid, or pulmonic valves. CT scan chest 10/26/2016- 1. No pulmonary embolus identified.2. Irregular consolidation in the basilar left lower lobe, suspicious forpneumonia in the proper clinical setting. Possible developing cavitation in the anterior left lower lobe. This may be reassessed on follow-up CT in approximately 3 months to evaluate for resolution. 3. Multiple mediastinal lymph nodes, with mild adenopathy in the subcarinal region. These may be reactive, and attention on follow-up is recommended. Patient was initially admitted to ICU, was then transfered to after stablization. GIB microcytic anemia, acute blood loss anemia likely from chronic blood loss anemia. His H&H responded well to blood transfusions. Overall patient recieved 4 units of PRBC while in hospital. * Upper endoscopy was done on 06/18/17: Circumferential prepyloric/antral ulcer status post biopsies. No active source of bleeding was noticed Also small 2 cm hiatal hernia was noticed. There were deformed duodenal bulb suggestive of prior peptic ulcer disease. Grossly normal small bowel folds and random biopsies were taken. patient refused colonoscopy and preps. Patient needs to follow with Dr Mcgowan in outpatient to follow biopsy results and do conoloscopy. Chronic back pain Patient continues to be on chronic pain medications for back pain. U tox were checked showed positive opiates but negative for cocaine, methadone or amphetamines. Pain controlled while in hospital. Patient was referred to pain specialist. [facility] -has acute kidney injury, likely from diarrhea or dehydration which was resolved before discharge. Chronic medical conditions: DM, HTN, astma - continued home medication Patient was stable to be discharged. Problem List: 1. GIB (gastrointestinal bleeding) 2. Chronic back pain Pain Ratin Pain Location: Back pain Pain Goal: Pain 4 or less Pain Plan: Continue current plan Tomorrow's Labs & Rationales: None Orlin Lynch MD 06/20/17 1233: Attending MD Review Statement Attending Statement Attending MD Statement: examined this patient, discuss w/resident/PA/MANUFACTURING SUPPORT ENGINEER, agreed w/resident/PA/MANUFACTURING SUPPORT ENGINEER, reviewed EMR data (avail), discussed with nursing, discussed with case mgmt, amended to note Attending Assessment/Plan: Patient seen and examined. Resting comfortably not in any acute distress. No issues overnight. No new complaints from the patient. His hemoglobin level this morning is stable. Denies any abdominal pain. Denies any rectal bleeding. Pathology report has not yet returned. He is medically stable to be discharged today and will follow up with the gastroenterology service as an outpatient for the results of his biopsy. He did complain of constipation and states that he strains regularly at home when moving his bowels. We are discharging him on a bowel regimen as patient is on chronic opioid therapy for his chronic pain. He has chronic musculoskeletal pains in the shoulders and back. He will be following up with his orthopedic service regarding this. He has been advised to avoid NSAID use for pain control. Also discontinuing his aspirin. During this hospitalization his antihypertensives were initially held. These have been resumed on his blood pressure is stable. He is to continue these medications upon discharge. upon discharge.
[2017-06-20 08:39] LABS: ABSOLUTE BASOPHIL COUNT 0 /CUMM (0.0-0.2); ABSOLUTE EOSINOPHIL COUNT 0.1 /CUMM (0.0-0.7); ABSOLUTE GRANULOCYTE CT 5.6 /CUMM (1.4-6.5); ABSOLUTE LYMPH COUNT 1.5 /CUMM (1.2-3.4); ABSOLUTE MONOCYTE COUNT 0.7 /CUMM (0.10-0.60); BASOPHIL % 0 % (0.0-2.0); EOSINOPHIL % 1.5 % (0-5); GRANULOCYTE % 71.1 % (42.2-75.2); HEMATOCRIT 26.3 % (42-52); MEAN CORPUSCULAR HGB 21.6 PG (27.0-31.0); MEAN CORPUSCULAR HGB CONC 30.7 G/DL (33.0-37.0); MEAN CORPUSCULAR VOLUME 70.3 FL (80.0-94.0); MEAN PLATELET VOLUME 8.3 FL (7.4-10.4); PLATELET COUNT 331 /CUMM (130-400); RBC DISTRIBUTION WIDTH 23.4 % (11.5-14.5); RED BLOOD CELL CT 3.74 /CUMM (4.70-6.10); WHITE BLOOD CELL COUNT 7.8 /CUMM (4.8-10.8)
[2017-06-20] MEDS ORDERED: SENNA S TABLET1 EACH PO ×2 (09:45→10:51)
[2017-06-20 10:56] VITALS: BP 144/88
== END 2017-06-20 13:13 | DRG 378 ==
LOC: ERH 14:02 → ERHI 14:57 → 2NB 14:57 → ENRESERV 17:32 → ENTRNSPT 18:13 → EDTRNSPT 18:29 → EDTRNSPTSTS 18:29 → CRI 18:32 → CMPTRNSPT 18:40 → ENTRNSPT 06-17 18:42 → EDTRNSPTSTS 06-17 18:55 → EDTRNSPT 06-17 18:55 → 2NB 06-17 19:09 → CMPTRNSPT 06-17 19:36 → 2NB 06-19 08:41
PROVIDERS: Internal Medicine; Internal Medicine Endocrinology, Diabetes & Metabolism; Physician Assistant Medical; Radiology Vascular & Interventional Radiology
PROC: 30233N1 Transfusion of Nonautologous Red Blood Cells into Peripheral Vein, Percutaneous Approach (ICD-10-PCS; principal; 2017-06-16)
PROC: 0DB98ZX Excision of Duodenum, Via Natural or Artificial Opening Endoscopic, Diagnostic (ICD-10-PCS; 2017-06-17)
PROC: 0DB68ZX Excision of Stomach, Via Natural or Artificial Opening Endoscopic, Diagnostic (ICD-10-PCS; 2017-06-17)
DX: K92.2 Gastrointestinal hemorrhage, unspecified (principal); D62 Acute posthemorrhagic anemia; N17.9 Acute kidney failure, unspecified; F11.20 Opioid dependence, uncomplicated; E11.9 Type 2 diabetes mellitus without complications; Z79.84 Long term (current) use of oral hypoglycemic drugs; K21.9 Gastro-esophageal reflux disease without esophagitis; R63.4 Abnormal weight loss; Z79.82 Long term (current) use of aspirin; Z79.891 Long term (current) use of opiate analgesic; Z79.51 Long term (current) use of inhaled steroids; E78.5 Hyperlipidemia, unspecified; J45.909 Unspecified asthma, uncomplicated; F10.10 Alcohol abuse, uncomplicated; E86.0 Dehydration; M54.9 Dorsalgia, unspecified
CPT/HCPCS: 2NBP; 84133; 84300; CCU; 36415; 36592; 74177; 80307; 81003; 82436; 82570; 86920; 93005; 93010; 96374; 96375; 99291; G0480; J3490; P9016

== ENCOUNTER 2017-11-17 17:56 | Inpatient (IN) | payer OTHER, MEDICARE ==
[~2017-11-17] VITALS: Ht 193 cm; Wt 81.6 kg
[~2017-11-17 17:56] MED LIST changes: +AMOXICILLIN875 M1 PO; +ASPIRIN EC81 M1 PO; +CELEBREX100 M1 PO; +CELEBREX200 M1 PO; +COZAAR50 M1 PO; +EXCEDRIN MIGRA1 EAC1 PO; +FERROUS SULFAT325 M3 PO; +GABAPENTIN600 M1 PO; +GLUCOPHAGE1000 M1 PO; +METFORMIN HCL500 M2 PO; +NEXIUM40 M1 PO; +OMEPRAZOLE40 M1 PO; +ROXICODONE15 M1 PO; +SENNA S TABLET1 EACH PO; +TOPROL XL25 M1 PO
[2017-11-17 18:37] LABS: ABSOLUTE BASOPHIL COUNT 0 /CUMM (0.0-0.2); ABSOLUTE EOSINOPHIL COUNT 0.1 /CUMM (0.0-0.7); ABSOLUTE LYMPH COUNT 1.8 /CUMM (1.2-3.4); ABSOLUTE MONOCYTE COUNT 0.7 /CUMM (0.10-0.60); BASOPHIL % 0 % (0.0-2.0); EOSINOPHIL % 1.4 % (0-5); GRANULOCYTE % 69.5 % (42.2-75.2); HEMATOCRIT 22.3 % (42-52); MEAN CORPUSCULAR HGB CONC 29.7 G/DL (33.0-37.0); MEAN CORPUSCULAR VOLUME 64.1 FL (80.0-94.0); PLATELET COUNT 550 /CUMM (130-400); RBC DISTRIBUTION WIDTH 20.4 % (11.5-14.5); RED BLOOD CELL CT 3.47 /CUMM (4.70-6.10); WHITE BLOOD CELL COUNT 8.6 /CUMM (4.8-10.8)
[2017-11-17 18:47] LABS: PT 12.7 SEC (9.4-12.5); PTT 31 SEC (25-37)
--- NOTE | 2017-11-17 19:05 | ED GENERAL ADULT ---
History of Present Illness General Chief Complaint: General Adult Stated Complaint: "HERE BECAUSE IM ANEMIC" MULTIPLE COMPLAINTS Source: patient Exam Limitations: no limitations Vital Signs & Intake/Output Vital Signs & Intake/Output Vital Signs Date Time Temp Pulse Resp B/P B/P Pulse O2 O2 Flow FiO2 Mean Ox Delivery Rate 11/18 1927 Room Air 11/17 1806 97.2 86 16 96 Room Air Allergies Coded Allergies: No Known Allergies (10/25/16) Reconcile Medications Acyclovir 400 MG TABLET 1 TAB PO TID ANTIVIRAL (Reported) Aspirin (Ecotrin*) 81 MG TABLET.DR 1 TAB PO DAILY heart Celecoxib (Celebrex) 200 MG CAPSULE 1 CAP PO BID PAIN (Reported) Esomeprazole (Nexium) 40 MG CAPSULE.DR 1 CAP PO DAILY GI (Reported) Fluticasone/Salmeterol (Advair 250-50 Diskus) 250 MCG-50 MCG/DOSE BLST.W.DEV 2 PUF INH BID ASTHMA (Reported) Gabapentin 600 MG TABLET 1 TAB PO Q6 neuropathy Glimepiride 2 MG TABLET 1 TAB PO DAILY diabetes Hydrochlorothiazide 25 MG TABLET 1 TAB PO DAILY bp Losartan Potassium 50 MG TABLET 1 TAB PO DAILY bp Metformin HCl (Glucophage) 1,000 MG TABLET 1 TAB PO BID diabetes Metoprolol Succinate 25 MG TAB 1 TAB PO DAILY HEART (Reported) Nortriptyline HCl (Pamelor) 50 MG CAPSULE 2 CAP PO QPM CRAMPING (Reported) Nortriptyline HCl (Pamelor) 50 MG CAPSULE 1 CAP PO QAM CRAMPING (Reported) Oxycodone HCl (Roxicodone) 15 MG TABLET 1 TAB PO TID PRN PAIN (Reported) Potassium Chloride 10 MEQ TABLET.ER 1 TAB PO DAILY SUPPLEMENT (Reported) Pravastatin Sodium 20 MG TABLET 1 TAB PO DAILY cholesterol Triage Note: 52 Y/O MALE C/O GENERAL WEAKNESS AND "ANEMIA". STATES HX OF SAME. WAS EVAL'D IN ED EARLIER IN THE WEEK FOR SAME BUT STATES HIS COUNTS WERE NOT LOW ENOUGH TO REQUIRE TRANSFUSION. PT STATES HE HAS BEEN WORKED UP BUT NO ONE CAN DETERMINE CAUSE OF ANEMIA. DENIES PAIN. REPORTS OCCASIONAL "DARK" STOOL. DENIES VOMITING BLOOD. PALE IN COLOR. Triage Nurses Notes Reviewed? yes Onset: Abrupt Duration: week(s):, constant HPI: 52-year-old male comes into the emergency room complaints of lightheaded dizziness progressive weakness and fatigue. History of anemia. Denies any blood in his stool. He complains of some intermittent chest pain on the left side. Denies any fever chills vomiting. No current chest pain. Patient was seen here the other day. He returns for further evaluation. Past History Travel History Traveled to [place] past 21 day No Medical History Any Pertinent Medical History? see below for history Neurological: migraine Cardiovascular: hypertension Respiratory: asthma Gastrointestinal: GERD, gi bleed Hepatic: NONE Renal: NONE Musculoskeletal: CHRONIC BACK PAIN Psychiatric: OPIOD DEP. HEROIN USE Endocrine: diabetes Blood Disorders: anemia Cancer(s): NONE APPLICATION COUNSELOR/Reproductive: NONE History of MRSA: No History of VRE: No History of CDIFF: No Surgical History Surgical History: multiple surgeries on his shoulder, elbow and hand Psychosocial History Who do you live with Patient/Self Services at Home None What is your primary language Bahraini Tobacco Use: Current Daily Use Daily Tobacco Use Amount/Type: => 5 Cigarettes daily Family History Family History, If Any: MOTHER (CAD). FATHER Hx Contributory? No Review of Systems Review of Systems Constitutional: Reports: see HPI. EENTM: Reports: no symptoms. Respiratory: Reports: see HPI. Cardiovascular: Reports: see HPI. GI: Reports: no symptoms. Genitourinary: Reports: no symptoms. Musculoskeletal: Reports: no symptoms. Skin: Reports: no symptoms. Neurological/Psychological: Reports: no symptoms. Hematologic/Endocrine: Reports: see HPI. Immunologic/Allergic: Reports: no symptoms. All Other Systems: Reviewed and Negative Physical Exam Physical Exam General Appearance: alert, awake Head: atraumatic Eyes: Bilateral: normal appearance. Ears, Nose, Throat: normal ENT inspection, hearing grossly normal Neck: normal inspection Respiratory: no respiratory distress Gastrointestinal: soft Back: normal inspection Extremities: normal inspection Neurologic/Psych: awake, alert, oriented x 3 Skin: pallor Core Measures ACS in differential dx? No CVA/TIA Diagnosis: No Sepsis Present: No Sepsis Focused Exam Completed? No Progress Differential Diagnoses I considered the following diagnoses in my evaluation of the patient: GI bleed, symptomatic anemia, iron deficiency anemia, Plan of Care: Orders Procedure Date/time Status Consistent Carbohydrate 1 11/18 B Active CBC WITHOUT DIFFERENTIAL 11/18 0600 Active Patient Data 11/17 2013 Active Pathway - chart 11/17 2006 Active Misc Message 11/17 1944 Active ED Holding Orders 11/17 1944 Active Admit to inpatient 11/17 1944 Active Vital Signs 11/17 1944 Active Code Status 11/17 1944 Active LEUKOCYTE POOR (PACKED CELLS) 11/18 1923 Active TROPONIN LEVEL 11/18 1811 Complete EKG 11/18 1811 Active PARTIAL THROMBOPLASTIN TIME 11/17 1810 Complete PROTHROMBIN TIME 11/17 1810 Complete COMPREHENSIVE METABOLIC PANEL 11/17 1810 Complete CBC WITHOUT DIFFERENTIAL 11/17 1810 Complete TYPE & SCREEN (NOT X-MATCH) 11/17 1810 Active House Staff 11/17 UNK Active Hemoccult 11/17 UNK Active Current Medications Sig/Marissa Start time Last Medication Dose Stop Time Status Admin Hydrochlorothiazide 25 MG DAILY 11/18 899 UNVr (Hydrodiuril) Losartan Potassium 50 MG DAILY 11/18 899 UNVr (Cozaar) Metoprolol Succinate 25 MG DAILY 11/18 899 UNVr (Toprol XL) Nortriptyline HCl 50 MG QAM 11/18 899 UNVr (Aventyl 50MG - Pamelor Cap) Pantoprazole Sodium 40 MG DAILY 11/18 899 UNVr (Protonix) Potassium Chloride 10 MEQ DAILY 11/18 899 UNVr (K-Dur) Pravastatin Sodium 20 MG DAILY 11/18 899 UNVr (Pravachol) Gabapentin 600 MG Q6 11/17 2358 UNVr (Neurontin) Nortriptyline HCl 100 MG QPM 11/17 2099 UNVr (Aventyl 50MG - Pamelor Cap) Oxycodone HCl 15 MG Q6 PRN 11/17 2029 UNVr (Roxicodone) Nicotine 14 MG DAILY 11/17 2017 UNVr (Nicotine Cq) Acetaminophen 650 MG Q6P PRN 11/17 2014 UNVr (Tylenol) Laboratory Tests 11/17/171827: Troponin I < 0.01 11/17/17 182: Anion Gap 12, Estimated GFR > 60, BUN/Creatinine Ratio 17.8, Glucose 117 H, Calcium 9.0, Total Bilirubin 0.1 L, AST 20, ALT 24, Alkaline Phosphatase 49, Total Protein 7.4, Albumin 4.3, Globulin 3.1, Albumin/Globulin Ratio 1.4, PT 12.7 H, INR 1.16, APTT 31, CBC w Diff NO MAN DIFF REQ, RBC 3.47 L, MCV 64.1 L , MCH 19.0 L, MCHC 29.7 L, RDW 20.4 H, MPV 7.0 L, Gran % 69.5, Lymphocytes % 20.4 L, Monocytes % 8.7, Eosinophils % 1.4, Basophils % 0, Absolute Granulocytes 6.0, Absolute Lymphocytes 1.8, Absolute Monocytes 0.7 H, Absolute Eosinophils 0.1, Absolute Basophils 0 Initial ED EKG: normal sinus rhythm, rate (76) Departure Departure Disposition: STILL A PATIENT Condition: Stable Clinical Impression Primary Impression: Symptomatic anemia Referrals: Patient Has No Primary Care Dr (PCP/Family) Departure Forms: Customer Survey General Discharge Information Admission Note Spoke With: Amadou Mcleod MD Documentation of Exam: Documentation of any treatments & extenuating circumstances including Concerns Regarding Discharge (functional status, medication knowledge or non-compliance, living conditions, etc.) that warrant an admission rather than observation: Blood transfusion. GI consultation. Hematology consultation. Critical Care Note Critical Care Note Critical Care Time: 30-74 min (45)
--- NOTE | 2017-11-17 19:38 | History & Physical ---
See Addendum Patricia Shaw 11/17/17 1938: General Information and HPI History of Present Illness: Patient is a 52 year old male with PMH of GI bleed, polysubstance abuse, type 2 diabetes mellitus, hypertension, GERD, chronic back pain, who presented to ED after being assessed 3 days ago for anemia. Patient seen in ER 11/14/17 for generalized weakness for two days. Patient has been concerned about his blood count dropping. Patient had a Hgb of 8.1 at that time but has been as low as 5.9 on 10/13/17. Patients last admission in hospital was May 2017 where he was evaluated for chronic blood loss. Upper endoscopy done at that time demonstrated circumfrential prepyloric/antral ulcers, 2cm hiatal hernia and suggestions of prior peptic ulcer. Patient refused colonoscopy at that time due to hemorrhoids/ pain and was advised to follow with Dr. Mcgowan outpatient for biopsy results and colonoscopy. Patient denies significant symptoms on this admission besides those of acid reflux and epigastric discomfort that is worse with food. He has noticed loose stools recently but no blood. Patient is a chornic smoker of 2 packs a day for what he states is a long time. He quit drinking alcohol in 2000. Famioly history significant for a tripple bypass in his father, diabetes and multiple strokes with his mother. Patient is currently unemployed and on disability. Patient advised me that he has been discontinued from his former PCP Dr. Garcia 4 months ago for misconduct. Darren Enciso is a community health worker who has recently been trying to find Mr. Jones a new primary care physician. Allergies/Medications Allergies: Coded Allergies: No Known Allergies (10/25/16) Home Med list Acyclovir 400 MG TABLET 1 TAB PO TID ANTIVIRAL (Reported) Aspirin (Ecotrin*) 81 MG TABLET.DR 1 TAB PO DAILY heart Celecoxib (Celebrex) 200 MG CAPSULE 1 CAP PO BID PAIN (Reported) Esomeprazole (Nexium) 40 MG CAPSULE.DR 1 CAP PO DAILY GI (Reported) Fluticasone/Salmeterol (Advair 250-50 Diskus) 250 MCG-50 MCG/DOSE BLST.W.DEV 2 PUF INH BID ASTHMA (Reported) Gabapentin 600 MG TABLET 1 TAB PO Q6 neuropathy Glimepiride 2 MG TABLET 1 TAB PO DAILY diabetes Hydrochlorothiazide 25 MG TABLET 1 TAB PO DAILY bp Losartan Potassium 50 MG TABLET 1 TAB PO DAILY bp Metformin HCl (Glucophage) 1,000 MG TABLET 1 TAB PO BID diabetes Metoprolol Succinate 25 MG TAB 1 TAB PO DAILY HEART (Reported) Nortriptyline HCl (Pamelor) 50 MG CAPSULE 2 CAP PO QPM CRAMPING (Reported) Nortriptyline HCl (Pamelor) 50 MG CAPSULE 1 CAP PO QAM CRAMPING (Reported) Oxycodone HCl (Roxicodone) 15 MG TABLET 1 TAB PO TID PRN PAIN (Reported) Potassium Chloride 10 MEQ TABLET.ER 1 TAB PO DAILY SUPPLEMENT (Reported) Pravastatin Sodium 20 MG TABLET 1 TAB PO DAILY cholesterol Past History Travel History Traveled to [place] past 21 day No Medical History Neurological: migraine Cardiovascular: hypertension Respiratory: asthma Gastrointestinal: GERD, gi bleed Hepatic: NONE Renal: NONE Musculoskeletal: CHRONIC BACK PAIN Psychiatric: OPIOD DEP. 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 FATHER Psychosocial History Services at Home: None Review of Systems Review of Systems Constitutional: Denies: see HPI. Exam & Diagnostic Data Last 24 Hrs of Vital Signs/I&O Vital Signs Date Time Temp Pulse Resp B/P B/P Pulse O2 O2 Flow FiO2 Mean Ox Delivery Rate 11/18 1927 Room Air 11/17 1806 97.2 86 16 96 Room Air Physical Exam General Appearance Alert, Oriented X3, Cooperative Skin No Rashes Skin Temp/Moisture Exam: Warm/Dry Sepsis Skin Exam (color): Normal for Ethnicity, Pale HEENT tongue is bright red; mild conjunctival palor Neck Supple Cardiovascular Normal S1, Normal S2 Lungs Increased breath sounds in lung alvarenga Abdomen Normal Bowel Sounds, Soft, No Tenderness Neurological Normal Gait, Normal Speech, Strength at 5/5 X4 Ext Extremities No Edema, Normal Pulses Vascular Normal Pulses Last 24 Hrs of Labs/Dimas: Laboratory Tests 11/17/171827: Troponin I < 0.01 11/17/171827: Anion Gap 12, Estimated GFR > 60, BUN/Creatinine Ratio 17.8, Glucose 117 H, Calcium 9.0, Total Bilirubin 0.1 L, AST 20, ALT 24, Alkaline Phosphatase 49, Total Protein 7.4, Albumin 4.3, Globulin 3.1, Albumin/Globulin Ratio 1.4, PT 12.7 H, INR 1.16, APTT 31, CBC w Diff NO MAN DIFF REQ, RBC 3.47 L, MCV 64.1 L , MCH 19.0 L, MCHC 29.7 L, RDW 20.4 H, MPV 7.0 L, Gran % 69.5, Lymphocytes % 20.4 L, Monocytes % 8.7, Eosinophils % 1.4, Basophils % 0, Absolute Granulocytes 6.0, Absolute Lymphocytes 1.8, Absolute Monocytes 0.7 H, Absolute Eosinophils 0.1, Absolute Basophils 0 Diagnostic Data EKG Results SR 76, QTC 459, QRS 120 Assessment/Plan Assessment: Patient is a 52 year old male with PMH of GI bleed, polysubstance abuse, type 2 diabetes mellitus, hypertension, GERD presenting with a complaint of fatigue and states "I am anemic." Found to have a hemoglobin of 6.6 on admission with MCV of 64.1. Last admitted in May 2017 for suspected GI bleed which had a hemoglobin of 5.2 at that time. Suggested to follow up with colonoscopy at that time. EMERGENCY DEPARTMENT: Vitals: 97.2, 86, 16, 96 Labs: WBC: 8.6, Hgb: 6.6, Hct: 22.3, MCV 64.1, Plt: 550 Chemistry: 139, 3.5, 98cl, 29 CO2, BUN 16, Cr: 0.9 PT: 12.7, INR: 1.16, APTT 31 EKG: SR 76, QTC 459, QRS 120 CT Abdomen/pelvis w/ contrast MAY 2017 There is a small amount of simple fluid that layers within the pelvis, the source of which is uncertain on the basis of this examination. No discrete inflammatory changes. No hydronephrosis and no evidence of obstructive uropathy. No discrete drainable fluid collection. No evidence of small bowel obstruction. Upper endoscopy was done on 06/18/17: Circumferential prepyloric/antral ulcer status post biopsies. No active source of bleeding was noticed Also small 2 cm hiatal hernia was noticed. There were deformed duodenal bulb suggestive of prior peptic ulcer disease. Grossly normal small bowel folds and random biopsies were taken. patient refused colonoscopy and preps. PROBLEM LIST: 1. Acute on Chronic Anemia 2. Chronic Pain 3. COPD 4. Hypertension 5. Diabetes mellitus 6. Hyperlipidemia 7. Chronic Smoker Acute on Chronic Anemia Patient with multiple admissions for anemia of counts ranging from 5.2 to 6.6 within the past month. Multiple visits to the ED for generalized weakness/ fatigue. Admitted to ICU with multiple transfusions and upper endoscopy 06/18/17. Refused colonoscopy at that time due to hemorrhoids. Presents with H/H of 6.6/ 22.3 today. No symptoms. Denies any source of blood loss. * 2 Unit PRBC transfusion * GI Consultation - contacted Dr. Mcgowan computer lab para professional * Keep patient NPO for possible intervention Chronic Pain Patient complains of chronic back and lower extremity pain. He is on multiple medications at home. Although he is no longer following Dr. Garcia, patient in search of new primary care physician. CT LOAN ASSISTANT checked. * Roxicodone 15mg q6 PRN * Nortriptyline 50mg QAM + 100mg QPM * Gabapentin 600mg Q6 PO COPD Patient with chronic smoking history of 2 packs a day for majority of his life. Denies any shortnes of breath or cough. Does not follow a gut snatcher. * Symbicort Hypertension * Continue Metoprolol 25mg Daily, HCTZ 25mg, Losartan 50mg Diabetes Mellitus * Held home metformin + glimiperide * ISS + accu-checks Hyperlipidemia * Continue Provastatin 20mg Daily Chronic Smoker 2 pack/day for majority of life. * Nicotine patch 14mg Consulted Dr. Mcgowan overnight Code Status: Full Code DVT PPx: ALPS Only Diet: CC1 As Ranked By This Provider Problem List: 1. Anemia 2. Chronic pain 3. Hypertension 4. Hyperlipidemia Core Measures/Misc (11/13) Acute Coronary Syndrome ACS Diagnosis: No Congestive Heart Failure Congestive Heart Failure Diagnosis No Cerebrovascular Accident CVA/TIA Diagnosis: No VTE (View Protocol) VTE Risk Factors Age>40 No Mechanical VTE Prophylaxis d/t N/A MechProphylax Ordered No VTE Pharm Prophylaxis d/t Medical Contraindication Sepsis (View protocol) Sepsis Present: No If YES complete Sepsis Event Note If YES complete Sepsis Event Note Tatiana Henley 11/17/17 2142: Core Measures/Misc (11/13) Sepsis (View protocol) If YES complete Sepsis Event Note If YES complete Sepsis Event Note Resident Review Statement Resident Statement: examined this patient, discussed with commissioner of internal revenue, agreed with commissioner of internal revenue, discussed with family, reviewed EMR data (avail), discussed with nursing , discussed with case mgmt, reviewed images, amended to note Other Findings: Mr Gaona is a 51 year old man w/ a PMHx of GI bleed, polysubstance abuse, type 2 diabetes, hypertension, GERD presented to ER cc of lightheadedness w/ progressive weakness/fatigue. He had chronic hx of anemia and underwent EGD done by Dr. Mcgowan in 05/2017 and showed ulcer w/ negative H/pylori, however he refused colonoscopy at the moment. He admitted intermittent black stool but currently guaiac negative in the ER. He also endorsed epigastric acid reflux intermittently although being on Nexium for now. He was also taking acyclovir since 2000 due to "his girlfriend has herpes" however he has not been taking it for months due to inadequate insurance reimbursement. Also he was taking oxycodone from time to time for his bilateral knee and shoulder pain, yet he failed to being seen by pain management. His previous PCP was Dr. Garcia but now he refused to see Dr. Garcia and looking for new prescription. During our clinical interaction, patient denied recent travel/sick contacts, fever/diaphoresis/night sweat/weight change/cough/SOB/Chest Pain/Palpitation/CVA tenderness/urinary abnormality, or other skin/musculoskeletal/neurological/mood disorders, or dietary/appetite change. On admission, Vitals: stable afebrile, Physical exam as above. Mild pallor at eyes, guiac negative, no ab pain. -CBC: Microcytic anemia 6.6 decreased from previous -CMP: WNL -PT/INR/DDimer: WNL -EKG: NSR w/o significant ST-T abnormalities, unchanged from previous. -Last Echo: 10/2016 showing normal EF and stage 2 diastolic dysfunction. -Interventions in ER: type and crossmatch, pending 2U PRBC Problem list/Assessment/Hospital Course: #symptomatic microcytic anemia w/ lightheadedness, 2/2 upper GI loss or other source pending r/o #Gastric ulcer w/ -ve H.Pyloric #PMHx of polysubstance abuse, type 2 diabetes, hypertension, GERD - Admit to general medicine - Vitals per protocol, monitor I&O per protocol. - Novolog SS/AccuChek, holding oral hypoglycemics - Continue all home meds, except HOLDING celebrex and aspirin. - Consult GI pending recommendations - Pending 2U PRBC, will recheck CBC in the AM, keep Hgb >7 - Pain per pathway, patient had intermittent use of oxycodone in the past, will cont this. DVT prophylaxis only ALPS Diabetic Diet CC1 IV Access: Peripheral IV Full Code Dispo: HSC likely Amadou Mcleod 11/18/17 0341: Core Measures/Misc (11/13) Sepsis (View protocol) If YES complete Sepsis Event Note If YES complete Sepsis Event Note Attending MD Review Statement Attending Statement Attending MD Statement: examined this patient, discuss w/resident/PA/MUD CAR WORKER, agreed w/resident/PA/MUD CAR WORKER Attending Assessment/Plan: Addendum by . Patient was seen and examined at bedside today (11/17/17) at 11:30Pm. Reviewed the history physical done by the resident. Reviewed the past medical family, family, social history. ROS: 10 point system reviewed and negative except as described above. See the resident note for physical examination. Labs reviewed. Assessment and plan: #Acute on chronic microcytic anemia-likely due to GI blood losses. Patient has a history of pyloric ulcer, evaluation. Put him on IV PPI twice daily. Hold off on any anticoagulation. Transfuse 2 PRBC now. Patient refused colonoscopy in the past. Patient will need hematology workup depending on the GI workup results. #Severe iron deficiency-we will give Venofer 200 mg daily for 5 days. #type 2 diabetes mellitus, hypertension, GERD, chronic back pain,-patient says he takes Celebrex at home which will be discontinued. Continue with his insulin regimen. Continue with his blood pressure medications. Reviewed with the resident. Agree with the rest of the plan as per resident's note. Dr.Ravinder Jay MD. Hospitalist. Pager: [phone], cell: [phone].
[2017-11-17 22:50] VITALS: BP 132/72
[2017-11-18 00:10] VITALS: BP 127/74
[2017-11-18 00:45] VITALS: BP 129/86
[2017-11-18 06:51] VITALS: BP 137/89
--- NOTE | 2017-11-18 07:02 | PN- Housestaff ---
See Addendum Subjective Follow-up For: #symptomatic microcytic TEETEE w/ lightheadedness, 2/2 upper GI loss #Gastric ulcer w/ -ve H.Pyloric #PMHx of polysubstance abuse, type 2 diabetes, hypertension, GERD Subjective: No overnight event. Patient had no specifc complaint s/p 2U PRBC. Review of Systems Constitutional: Reports: see HPI. Objective Last 24 Hrs of Vital Signs/I&O Vital Signs Date Time Temp Pulse Resp B/P B/P Pulse O2 O2 Flow FiO2 Mean Ox Delivery Rate 11/18 0651 98.3 75 20 137/89 92 Room Air 11/18 0045 98.3 71 16 129/86 100 Room Air 11/18 0010 98.3 67 16 127/74 100 11/17 2250 98.4 64 16 132/72 100 Room Air 11/17 2056 98.1 72 16 121/64 98 Room Air 11/17 1928 Room Air 11/17 1807 97.2 86 16 96 Room Air Intake & Output 11/18 0800 11/18 0000 11/17 1600 Intake Total 580 350 Output Total Balance 580 350 Intake, Blood 350 350 Product Intake, IV 30 Intake, Oral 200 Patient 81.647 kg Weight Weight Reported by Patient Measurement Method Physical Exam General Appearance: Alert, Oriented X3, Cooperative, No Acute Distress Cardiovascular: Regular Rate Lungs: Clear to Auscultation, Normal Air Movement Abdomen: Normal Bowel Sounds, Soft, No Tenderness Extremities: No Cyanosis, No Edema, Normal Pulses Current Medications: Current Medications Sig/Marissa Start time Last Medication Dose Route Stop Time Status Admin Acetaminophen 650 MG Q6P PRN 11/17 2014 AC PO Budesonide/ 2 PUF BID 11/17 2099 AC Formoterol Fumarate INH Gabapentin 600 MG Q6 11/17 235 AC 11/18 PO 0628 Hydrochlorothiazide 25 MG DAILY 11/18 899 AC PO Insulin Aspart 0 TIDAC 11/19 799 AC SC Losartan Potassium 50 MG DAILY 11/18 899 AC PO Metoprolol Succinate 25 MG DAILY 11/18 899 AC PO Nicotine 0 .STK-MED ONE 11/17 2038 DC TOP Nicotine 14 MG DAILY 11/17 2017 AC 11/17 TOP 2058 Nortriptyline HCl 50 MG QAM 11/18 899 AC PO Nortriptyline HCl 100 MG QPM 11/17 2099 AC 11/17 PO 2058 Oxycodone HCl 15 MG Q6P PRN 11/17 2029 AC 11/18 PO 627 Pantoprazole Sodium 40 MG DAILY 11/18 899 AC IV Potassium Chloride 10 MEQ DAILY 11/18 899 AC PO Pravastatin Sodium 20 MG DAILY 11/18 899 AC PO Last 24 Hrs of Lab/Dimas Results Last 24 Hrs of Labs/Mics: Laboratory Tests 11/18/1739: CBC w Diff Pending, WBC Pending, RBC Pending, Hgb Pending, Hct Pending, MCV Pending, MCH Pending, MCHC Pending, RDW Pending, Plt Count Pending, MPV Pending 11/17/171827: Troponin I < 0.01 11/17/171827: Anion Gap 12, Estimated GFR > 60, BUN/Creatinine Ratio 17.8, Glucose 117 H, Calcium 9.0, Magnesium 1.9, Iron 12 L, TIBC 429, Ferritin 3.8 L, Total Bilirubin 0.1 L, AST 20, ALT 24, Alkaline Phosphatase 49, Lactate Dehydrogenase 406, Total Protein 7.4, Albumin 4.3, Globulin 3.1, Albumin/Globulin Ratio 1.4, PT 12.7 H, INR 1.16, APTT 31, CBC w Diff NO MAN DIFF REQ, RBC 3.47 L, MCV 64.1 L, MCH 19.0 L, MCHC 29.7 L, RDW 20.4 H, MPV 7.0 L, Gran % 69.5, Lymphocytes % 20.4 L, Monocytes % 8.7, Eosinophils % 1.4, Basophils % 0, Absolute Granulocytes 6.0, Absolute Lymphocytes 1.8, Absolute Monocytes 0.7 H, Absolute Eosinophils 0.1, Absolute Basophils 0 Assessment/Plan Assessment: Problem list/Assessment/Hospital Course: #symptomatic TEETEE w/ lightheadedness, 2/2 upper GI loss or other source pending r /o #Gastric ulcer w/ -ve H.Pyloric #PMHx of polysubstance abuse, type 2 diabetes, hypertension, GERD - Vitals per protocol, monitor I&O per protocol. - Novolog SS/AccuChek, holding oral hypoglycemics - Continue all home meds, except HOLDING celebrex and aspirin. - Start Iron supplement through IV. - Consult GI pending recommendations - s/p 2U PRBC, keep Hgb >7 - Pain per pathway DVT prophylaxis only ALPS Diabetic Diet CC1 IV Access: Peripheral IV Full Code Dispo: HSC likely Problem List: 1. Anemia Pain Ratin Pain Location: NA Pain Goal: Remain pain free Pain Plan: see AP Tomorrow's Labs & Rationales: CBC
--- NOTE | 2017-11-18 08:01 | Cons- Gastroenterology ---
General Information and HPI Consulting Request Date of Consult: 11/18/17 Requested By: Amadou Mcleod MD Reason for Consult: Iron deficiency anemia, abdominal pain. History of PUD. Source of Information: patient, old records Exam Limitations: no limitations History of Present Illness: Mr. Jones is a 52 year old male with a history of PSA, PUD and iron deficiency anemia for which he has been non-compliant with pursuing a colonoscopy who presented to twice over the past few days with progressive weakness. He has a history of chronic iron deficiency anemia and he ultimately underwent an upper endoscopy in May 2017 that showed a pre-pyloric gastric ulcer and a small hiatal hernia without demetrius erosions, but he refused a colonoscopy on that admission (as he had previously) and didn't follow up as an outpatient to arrange for this. Of note, his PCP recently discharged him from his practice for non-compliance with hers and other recommendations. He notes some epigastric discomfort and reflux symptoms and also notes intermittent dysphagia and intermittent loose stool. He is without any hematemesis, melena or rectal bleeding. In the ER he was hemodynamically stable, but he was noted to have a hgb of 6.6 which was a 1.5 gram drop from when he presented to the ER a few days ago which prompted admission. Allergies/Medications Allergies: Coded Allergies: No Known Allergies (10/25/16) Home Med List: Esomeprazole (Nexium) 40 MG CAPSULE.DR 1 CAP PO DAILY GI Ferrous Sulfate 325 MG (65 MG IRON) TABLET 1 TAB PO DAILY Anemia . Fluticasone/Salmeterol (Advair 250-50 Diskus) 250 MCG-50 MCG/DOSE BLST.W.DEV 2 PUF INH BID ASTHMA Gabapentin 600 MG TABLET 1 TAB PO Q6 neuropathy Glimepiride 2 MG TABLET 1 TAB PO DAILY diabetes . Hydrochlorothiazide 25 MG TABLET 1 TAB PO DAILY BP . Losartan Potassium 50 MG TABLET 1 TAB PO DAILY bp Metformin HCl (Glucophage) 1,000 MG TABLET 1 TAB PO BID diabetes . Metoprolol Succinate 25 MG TAB 1 TAB PO DAILY HEART Nortriptyline HCl (Pamelor) 50 MG CAPSULE 1 CAP PO QAM CRAMPING Nortriptyline HCl (Pamelor) 50 MG CAPSULE 2 CAP PO QPM CRAMPING Oxycodone HCl/Acetaminophen (Percocet 5-325 MG Tablet) 5 MG-325 MG TABLET 1 TAB PO BID PAIN CONTROL . Potassium Chloride 10 MEQ TABLET.ER 1 TAB PO DAILY SUPPLEMENT . Pravastatin Sodium 20 MG TABLET 1 TAB PO DAILY cholesterol Current Medications: Current Medications Sig/Marissa Start time Last Medication Dose Route Stop Time Status Admin Acetaminophen 650 MG Q6P PRN 11/17 2014 AC PO Budesonide/ 2 PUF BID 11/17 2099 AC Formoterol Fumarate INH Gabapentin 600 MG Q6 11/17 2359 AC 11/18 PO 627 Hydrochlorothiazide 25 MG DAILY 11/18 899 AC PO Insulin Aspart 0 TIDAC 11/19 799 AC SC Iron Sucrose 200 MG Q48 11/18 899 AC Sodium Chloride 100 ML IV 11/26 913 Losartan Potassium 50 MG DAILY 11/18 899 AC PO Metoprolol Succinate 25 MG DAILY 11/18 899 AC PO Nicotine 0 .STK-MED ONE 11/17 2038 [place] TOP Nicotine 14 MG DAILY 11/17 2017 AC 11/17 TOP 2058 Non-Formulary 0 SEE ADMIN CRITERIA 11/18 744 CAN Medication ANY Nortriptyline HCl 50 MG QAM 11/18 899 AC PO Nortriptyline HCl 100 MG QPM 11/17 2100 AC 11/17 PO 2058 Oxycodone HCl 15 MG Q6P PRN 11/17 2030 AC 11/18 PO 627 Pantoprazole Sodium 40 MG DAILY 11/18 899 AC IV Potassium Chloride 10 MEQ DAILY 11/18 899 AC PO Pravastatin Sodium 20 MG DAILY 11/18 899 AC PO Past History Travel History Traveled to [place] past 21 day No Medical History Neurological: migraine Cardiovascular: hypertension Respiratory: asthma Gastrointestinal: GERD, gi bleed Hepatic: NONE Renal: NONE Musculoskeletal: CHRONIC BACK PAIN Psychiatric: OPIOD DEP. 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 FATHER Psychosocial History Where Do You Live? Home Services at Home: None Smoking Status: Current Everyday Smoker Review of Systems Review of Systems Constitutional: Reports: malaise, weakness. Denies: chills, diaphoresis, fever. EENTM: Denies: no symptoms. Cardiovascular: Reports: chest pain. Denies: orthopena, palpitations, peripheral edema. Respiratory: Denies: no symptoms. GI: Reports: see HPI. Genitourinary: Denies: no symptoms. Musculoskeletal: Reports: muscle pain. Denies: back pain, gout, joint pain, joint swelling. Skin: Denies: no symptoms. Neurological/Psychological: Denies: no symptoms. Hematologic/Endocrine: Denies: no symptoms. Immunologic/Allergic: Denies: no symptoms. All Other Systems: Reviewed and Negative Exam & Diagnostic Data Vital Signs and I&O Vital Signs Date Time Temp Pulse Resp B/P B/P Pulse O2 O2 Flow FiO2 Mean Ox Delivery Rate 11/18 0651 98.3 75 20 137/89 92 Room Air 11/18 0045 98.3 71 16 129/86 100 Room Air 11/18 0010 98.3 67 16 127/74 100 11/17 2250 98.4 64 16 132/72 100 Room Air 11/17 2056 98.1 72 16 121/64 98 Room Air 11/17 1928 Room Air 11/17 1807 97.2 86 16 96 Room Air Intake & Output 11/18 1600 11/18 0400 11/17 1600 11/17 0400 11/16 1600 11/16 0400 Intake Total 580 350 Output Total Balance 580 350 Intake, Blood 350 350 Product Intake, IV 30 Intake, Oral 200 Patient 180 lb Weight Weight Reported by Patient Measurement Method Physical Exam General Appearance: well developed/nourished, no apparent distress, anxious, comfortable Head: atraumatic, normal appearance Eyes: Bilateral: normal appearance. Ears, Nose, Throat: normal pharynx, normal ENT inspection Neck: normal inspection, supple, full range of motion Respiratory: normal breath sounds, chest non-tender, no respiratory distress, quiet respiration Cardiovascular: regular rate/rhythm Gastrointestinal: normal bowel sounds, soft, non-tender, no organomegaly Rectal: deferred Back: normal inspection, normal range of motion Extremities: normal inspection, normal range of motion, no edema Neurologic/Psych: no motor/sensory deficits, awake, alert, oriented x 3 Skin: intact, normal color Results Pertinent Lab Results: Laboratory Tests 11/18 11/17 11/17 0639 1828 1828 Chemistry Sodium (137 - 145 mmol/L) 139 Potassium (3.5 - 5.1 mmol/L) 3.5 Chloride (98 - 107 mmol/L) 98 Carbon Dioxide (22 - 30 mmol/L) 29 Anion Gap (5 - 16) 12 BUN (9 - 20 mg/dL) 16 Creatinine (0.7 - 1.2 mg/dL) 0.9 Estimated GFR (>60 ml/min) > 60 BUN/Creatinine Ratio (7 - 25 %) 17.8 Glucose (65 - 99 mg/dL) 117 H Calcium (8.4 - 10.2 mg/dL) 9.0 Magnesium (1.6 - 2.3 mg/dL) 1.9 Iron (49 - 181 ug/dL) 12 L TIBC (261 - 462 ug/dL) 429 Ferritin (17.9 - 464 ng/mL) 3.8 L Total Bilirubin (0.2 - 1.3 mg/dL) 0.1 L AST (17 - 59 U/L) 20 ALT (21 - 72 U/L) 24 Alkaline Phosphatase (< 127 U/L) 49 Lactate Dehydrogenase (313 - 618 U/L) 406 Troponin I (<0.11 ng/ml) < 0.01 Total Protein (6.3 - 8.2 g/dL) 7.4 Albumin (3.5 - 5.0 g/dL) 4.3 Globulin (1.9 - 4.2 gm/dL) 3.1 Albumin/Globulin Ratio (1.1 - 2.2 %) 1.4 Coagulation PT (9.4 - 12.5 SEC) 12.7 H INR (0.90 - 1.17) 1.16 APTT (25 - 37 SEC) 31 Hematology CBC w Diff Pending NO MAN DIFF REQ WBC (4.8 - 10.8 /CUMM) Pending 8.6 RBC (4.70 - 6.10 /CUMM) Pending 3.47 L Hgb (14.0 - 18.0 G/DL) Pending 6.6 *L Hct (42 - 52 %) Pending 22.3 L MCV (80.0 - 94.0 FL) Pending 64.1 L MCH (27.0 - 31.0 PG) Pending 19.0 L MCHC (33.0 - 37.0 G/DL) Pending 29.7 L RDW (11.5 - 14.5 %) Pending 20.4 H Plt Count (130 - 400 /CUMM) Pending 550 H MPV (7.4 - 10.4 FL) Pending 7.0 L Gran % (42.2 - 75.2 %) 69.5 Lymphocytes % (20.5 - 51.1 %) 20.4 L Monocytes % (1.7 - 9.3 %) 8.7 Eosinophils % (0 - 5 %) 1.4 Basophils % (0.0 - 2.0 %) 0 Absolute Granulocytes (1.4 - 6.5 /CUMM) 6.0 Absolute Lymphocytes (1.2 - 3.4 /CUMM) 1.8 Absolute Monocytes (0.10 - 0.60 /CUMM) 0.7 H Absolute Eosinophils (0.0 - 0.7 /CUMM) 0.1 Absolute Basophils (0.0 - 0.2 /CUMM) 0 Imaging/Other Studies: Endoscopy Procedure Medical History: unchanged (see meditech consult) Mental Status: alert/oriented Heart/Lung Eval Prior to Sedation: within normal limits Candidate for Sedation? Yes Procedure Date: 06/17/17 Procedure Type: EGD w/biopsy Automatic Door Mechanic: Shay Mcgowan MD ASA Classification: III Indications: Anemia. Dysphagia and abdominal pain. Instrument: diagnostic gastroscope Meds Received: MAC Patient's Tolerance: good Complications: none Extent Reached: second part of duodenum Procedure: After getting written informed consent the patient was placed in the left lateral decubitus position with pulse oximetry, cardiac monitoring, and supplemental oxygen given. A bite block was inserted and IV sedation was given until the desired effect was achieved. A high definition upper Olympus endoscope was then inserted into the mouth and advanced to the second portion of the duodenum with little difficulty. Retroflexed views and photodocumentation was obtained. Findings: Esophagus: The esophageal mucosa was grossly normal in appearance and there was a normal-appearing Z line at 43 cm from the incisors. The hiatal narrowing was at 45 cm from the incisors accounting for a small 2 cm sliding hiatal hernia. There were no esophageal masses, ulcers, erosions, strictures, or significant furrowing appreciated. Stomach: Is a large circumferential ulcer around the pyloric channel the scope was able to traverse. Was no obvious corresponding mass, but the ulcer was irregular in appearance and potentially malignant. The remainder of the gastric mucosa was grossly normal in appearance. Retroflexed views revealed a small hiatal hernia without evident Demetrius erosions. Her obtained around the edges of the pyloric ulcer cold biopsy forceps and were sent to pathology for further evaluation and random biopsies were also obtained from the antrum and body of the stomach with cold biopsy forceps and were sent to pathology for further evaluation. Duodenum: The duodenal bulb and sweep was moderately deformed suggestive of prior peptic ulcer disease at the duodenal folds were grossly normal in appearance. Random biopsies were obtained from the second portion of the duodenum and were sent to pathology for further evaluation. Impression: 1. Circumferential prepyloric/antral ulcer status post biopsies. 2. Small 2 cm hiatal hernia. 3. Deformed duodenal bulb suggestive of prior peptic ulcer disease status post random gastric biopsies. 4. Grossly normal small bowel folds status post random biopsies. A. GASTRIC ANTRUM/PYLORIC ULCER, BIOPSY: CHRONIC INFLAMMATION, AND SURFACE EROSION, AND SEPARATE PORTIONS OF FIBRINOPURULENT EXUDATE. GIEMSA STAIN IS NEGATIVE FOR HELICOBACTER-TYPE STRUCTURES. NEGATIVE FOR EVIDENCE OF MALIGNANCY. NOTE: Dr. Zora Calderon has reviewed specimen A and agrees with the above interpretation. B. SMALL BOWEL BIOPSY: UNREMARKABLE SMALL INTESTINE MUCOSA. C. GASTRIC ANTRUM BIOPSY: MODERATE CHRONIC AND FOCAL MODERATE ACUTE INFLAMMATION. GIEMSA STAIN IS NEGATIVE FOR HELICOBACTER-TYPE STRUCTURES. NEGATIVE FOR EVIDENCE OF MALIGNANCY. D. GASTRIC BODY BIOPSY: MILD CHRONIC INFLAMMATION. GIEMSA STAIN IS NEGATIVE FOR HELICOBACTER-TYPE STRUCTURES. NEGATIVE FOR EVIDENCE OF MALIGNANCY. SERVICE DATE: 06/18/17 EXAM TYPE: CAT - CT ABD & PELVIS W IV CONTRAST EXAMINATION: CT ABDOMEN AND PELVIS WITH CONTRAST CLINICAL INFORMATION: Back pain. Acute blood loss. Anemia. Gastric ulcer. COMPARISON: No relevant prior imaging. TECHNIQUE: Multidetector volumetric imaging was performed of the abdomen and pelvis following IV administration of 95 mL of Optiray 320 intravenous contrast. Sagittal and coronal reformatted images were obtained on the technologist's workstation. DLP: 344.84 mGy-cm FINDINGS: LUNG BASES: There is minimal bibasilar subsegmental atelectasis. No pleural or pericardial effusion. LIVER, GALLBLADDER, AND BILIARY TREE: Liver attenuation is homogeneous with no evidence of a discrete hepatic parenchymal mass. Grossly no intrahepatic or extrahepatic biliary ductal dilatation. The gallbladder is unremarkable with no evidence of radiopaque gallstones, gallbladder wall thickening, or obvious pericholecystic inflammatory changes. PANCREAS: Unremarkable. SPLEEN: Unremarkable. ADRENAL GLANDS: Unremarkable. KIDNEYS AND URETERS: Kidneys demonstrate symmetric corticomedullary enhancement characteristics. No discrete renal parenchymal mass. No abnormal perinephric inflammation or collection. No hydronephrosis. No worrisome mass or calcification is visualized along the expected course of the right or left ureter. BLADDER: Unremarkable. GASTROINTESTINAL TRACT: The stomach and small bowel are unremarkable. No free intraperitoneal air. There is simple fluid that layers within the pelvis best illustrated on axial image 74 of 92 series 2, the source of which is uncertain on this examination. There is no evidence of obstruction. Numerous diverticula are visualized primarily within the descending and sigmoid colon. No evidence of acute diverticulitis. Normal appendix. ABDOMINAL WALL: No significant hernia is appreciated. LYMPH NODES: There are no pathologically enlarged mesenteric or retroperitoneal lymph nodes. VASCULAR: The abdominal aorta and inferior vena cava are unremarkable. PELVIC VISCERA: Unremarkable. OSSEOUS STRUCTURES: There is no acute osseous finding. No worrisome lytic or blastic osseous lesion. There is degenerative spondylosis at multiple levels, most advanced at the levels of L2-L3 and L5-S1. Grossly no evidence of canal compromise. IMPRESSION: There is a small amount of simple fluid that layers within the pelvis, the source of which is uncertain on the basis of this examination. No discrete inflammatory changes. No hydronephrosis and no evidence of obstructive uropathy. No discrete drainable fluid collection. No evidence of small bowel obstruction. Assessment/Plan Assessment/Recommendations: Assessment: Mr. Jones is a 52 year old male with a history of PSA and chronic iron deficiency anemia which I suspect is benign in etiology and likely related to occult losses from his upper GI tract from PUD secondary to NSAID use. It is also possible he could have an occult CRC contributing to his anemia, but as this has been a chronic problem dating back at least 2 years, when I first saw him as an outpatient, and probably longer if his anemia was secondary to a GI malignancy I would expect to see some type of mass on imaging and his ct scan done a few months ago only showed diverticulosis without any obvious mass. While I still feel he should have a colonoscopy to complete his work up for his anemia in addition to assess for colon polyps I don't feel it is urgent and it can be pusued as an outpatient. I would also recommend repeating his EGD considering the acute drop in his hgb over the past 3-4 days, but as he is without ovet GI bleeding, has been hemodynamically stable and as his BUN/Cr ratio isn't elevated I also don't feel this is urgent and can wait until Monday unless the clinical situation changes. If he is agreeable to taking a bowel prep I will plan to do both a colonoscopy and repeat endosocpy on Monday, but if past history is any indication I suspect he will refuse the bowel prep when it is ultimatlely offered. Recommendations: 1. Diet as tolerated for now. 2. Follow CBC q12 hrs and transfuse as needed to maintain his hgb > 7 or as per cardiology recommendations. 3. Would hold all NSAIDs 4. Continue IV protonix 40 mg daily for now. 5. Notify GI for signs of overt, hemodynamically significant GI bleeding. 6. Would put him on a full liquid diet and if he is agreeable would prep him with 1 gallon of golytely after a liquid dinner in anticipation of a colonoscopy on Monday afternoon. 7. If he refuses the bowel prep would then just keep him NPO after midnignt on Monday for a repeat diagnostic EGD on Monday to assess for any high risk leions (ie. an ulcer with a visible vessel), but would do this sooner if hemodynamically significant bleeding ensues in the interim time period. I will continue to follow this patient and make further recommendations based on his clinical course and the results of repeat blood work. Problem List: 1. Heroin abuse 2. Chronic pain 3. Guaiac positive stools 4. GIB (gastrointestinal bleeding) 5. Anemia Consult Acknowledgment - Thank you for your consult request.
[2017-11-18 08:45] LABS: ABSOLUTE BASOPHIL COUNT 0 /CUMM (0.0-0.2); ABSOLUTE EOSINOPHIL COUNT 0.1 /CUMM (0.0-0.7); ABSOLUTE GRANULOCYTE CT 4.1 /CUMM (1.4-6.5); ABSOLUTE LYMPH COUNT 1.5 /CUMM (1.2-3.4); ABSOLUTE MONOCYTE COUNT 0.6 /CUMM (0.10-0.60); BASOPHIL % 0 % (0.0-2.0); EOSINOPHIL % 2.3 % (0-5); GRANULOCYTE % 64.7 % (42.2-75.2); HEMATOCRIT 24.3 % (42-52); MEAN CORPUSCULAR HGB 20.6 PG (27.0-31.0); MEAN CORPUSCULAR HGB CONC 30.4 G/DL (33.0-37.0); MEAN PLATELET VOLUME 7.6 FL (7.4-10.4); PLATELET COUNT 355 /CUMM (130-400); RBC DISTRIBUTION WIDTH 21.5 % (11.5-14.5); WHITE BLOOD CELL COUNT 6.3 /CUMM (4.8-10.8)
[2017-11-18 10:12] LABS: MEAN CORPUSCULAR VOLUME 67.6 FL (80.0-94.0)
[2017-11-18 15:10] VITALS: BP 140/80
[2017-11-18 22:00] VITALS: BP 136/87
[2017-11-18 22:55] LABS: ABSOLUTE BASOPHIL COUNT 0 /CUMM (0.0-0.2); ABSOLUTE EOSINOPHIL COUNT 0.1 /CUMM (0.0-0.7); ABSOLUTE GRANULOCYTE CT 5.6 /CUMM (1.4-6.5); ABSOLUTE LYMPH COUNT 1.2 /CUMM (1.2-3.4); ABSOLUTE MONOCYTE COUNT 0.4 /CUMM (0.10-0.60); BASOPHIL % 0 % (0.0-2.0); EOSINOPHIL % 1.6 % (0-5); GRANULOCYTE % 77.6 % (42.2-75.2); MEAN CORPUSCULAR HGB 20.4 PG (27.0-31.0); MEAN CORPUSCULAR HGB CONC 30.8 G/DL (33.0-37.0); MEAN CORPUSCULAR VOLUME 66.2 FL (80.0-94.0); MEAN PLATELET VOLUME 7.6 FL (7.4-10.4); PLATELET COUNT 437 /CUMM (130-400); RBC DISTRIBUTION WIDTH 21.8 % (11.5-14.5); RED BLOOD CELL CT 4.07 /CUMM (4.70-6.10); WHITE BLOOD CELL COUNT 7.3 /CUMM (4.8-10.8)
[2017-11-19 06:48] VITALS: BP 136/80
--- NOTE | 2017-11-19 09:59 | PN- Housestaff ---
Lisandro Gaitan 11/19/17 0956: Subjective Follow-up For: #symptomatic microcytic TEETEE w/ lightheadedness, 2/2 upper GI loss #Gastric ulcer w/ -ve H.Pyloric #PMHx of polysubstance abuse, type 2 diabetes, hypertension, GERD Subjective: Patient was seen and examined this morning. On asking how he was doing he said the same. Patient is very frustrated and was very sarcastic in his replies. He said he did not want to undergo a colonoscopy, since it did not make any difference to him. He was explained about the outcomes of having colonoscopy, positive versus negative and a workup plan that would be executed if the colonoscopy was negative. But he continued to resist and he was frustrated about the cramps in his legs and questioned why he had cramps. Complained about the pain medications and the reason for cramps but the patient did not get convinced. Review of Systems Constitutional: Reports: see HPI. Objective Last 24 Hrs of Vital Signs/I&O Vital Signs Date Time Temp Pulse Resp B/P B/P Pulse O2 O2 Flow FiO2 Mean Ox Delivery Rate 11/19 0648 97.8 60 18 136/80 99 Room Air 11/18 2200 98.3 73 18 136/87 97 Room Air 11/18 1510 97.7 64 18 140/80 94 Room Air 11/18 1035 137/89 11/18 1034 137/89 Intake & Output 11/19 1600 11/19 0800 11/19 0000 Intake Total 240 120 Output Total Balance 240 120 Intake, Oral 240 120 Physical Exam General Appearance: Alert, Oriented X3, Cooperative, No Acute Distress Cardiovascular: Regular Rate, No Murmurs Lungs: Clear to Auscultation, Normal Air Movement Abdomen: Normal Bowel Sounds, Soft, No Tenderness, No Hepatospenomegaly, No Masses Neurological: Normal Speech, Strength at 5/5 X4 Ext, Normal Tone, Sensation Intact Extremities: No Clubbing, No Cyanosis, No Edema, Normal Pulses, No Tenderness/ Swelling Assessment/Plan Assessment: Problem list/Assessment/Hospital Course: #symptomatic TEETEE w/ lightheadedness, 2/2 upper GI loss or other source pending r /o #Gastric ulcer w/ -ve H.Pyloric #PMHx of polysubstance abuse, type 2 diabetes, hypertension, GERD - Vitals per protocol, monitor I&O per protocol. - Novolog SS/AccuChek, holding oral hypoglycemics - Continue all home meds, except HOLDING celebrex and aspirin. - Start Iron supplement through IV. - Consult GI pending recommendations - s/p 2U PRBC, keep Hgb >7 - Pain per pathway -Patient had an endoscopy yesterday which showed circumferential prepyloric/ antral ulcer with small 2 cm hiatal hernia, previous peptic ulcer disease -Patient refuses colonoscopy -Follow-up CBCs, BEP, DVT prophylaxis only ALPS Diabetic Diet CC1 IV Access: Peripheral IV Full Code Dispo: [facility] [place] likely Problem List: 1. GIB (gastrointestinal bleeding) 2. Anemia Pain Ratin Pain Location: legs Pain Goal: Remain pain free Pain Plan: as discussed Tomorrow's Labs & Rationales: none Cris LOPEZ,Orlin 11/19/17 1014: Attending MD Review Statement Attending Statement Attending MD Statement: examined this patient, discuss w/resident/PA/AUTOMOBILE BODY REPAIRER, agreed w/resident/PA/AUTOMOBILE BODY REPAIRER, reviewed EMR data (avail), discussed with nursing, discussed with case mgmt, amended to note Attending Assessment/Plan: Patient seen and examined. He continues very polite and sarcastic this morning. He reportedly states that he is frustrated that was unable to explain to him why he is so anemic however continues to refuse undergo colonoscopy on account of history of hemorrhoids. Did explain clearly to the patient in simple terms of his anemia is likely due to blood loss or poor production or some combination of both. I did explain well he could be bleeding from peptic ulcer disease which is known to have given his age anemia colon cancer needs to be ruled out as well. He continues to request for higher doses of oxycodone for generalized pain stating that he was requiring high doses of the streets for pain control after his pain practice declined to see him any longer. He is also complaining of neuropathic pain in his lower extremities stating that he used to get Neurontin and amitriptyline from his primary care provider before she to stop seeing him due to noncompliance with therapy. Laboratory data yesterday shows improvement of his hemoglobin level to 8.3 following transfusion of 2 PRBC following admission. There has been no reports of melena or bright red blood per rectum. On examination he has adequate entry bilaterally with no added sounds. Heart sounds are regular with no audible murmur. Abdomen is soft and nontender. He has no peripheral edema. Problems: 1. Acute on chronic anemia. 2. Severe iron deficiency 3. History of polysubstance abuse (heroin and cocaine) 4. Opiate dependency 5. History of peptic ulcer disease 6. 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 Hypertension Plan: -Follow hemoglobin levels today. Transfuse to keep hemoglobin level greater than 7. -In view of his severe iron deficiency with need for transfusions recommend beginning iron replacement therapy with Ferrlecit 125 mg intravenously daily. -Patient continues to refuse colonoscopy. Keep n.p.o. past midnight for EGD tomorrow for reevaluation of his peptic ulcer disease. -If GI workup does not reveal etiology of his anemia recommend consultation of the hematology service. -Continue gabapentin and nortriptyline for his neuropathic pain. May increase the dose of his oxycodone to 10 mg every 4 hours as needed for pain. Patient declines using the modalities and regimen for pain control stating that he has done so for several years while in a pain practice without success.
[2017-11-19 10:26] LABS: ABSOLUTE BASOPHIL COUNT 0 /CUMM (0.0-0.2); ABSOLUTE EOSINOPHIL COUNT 0.1 /CUMM (0.0-0.7); ABSOLUTE GRANULOCYTE CT 4.7 /CUMM (1.4-6.5); ABSOLUTE LYMPH COUNT 1.3 /CUMM (1.2-3.4); ABSOLUTE MONOCYTE COUNT 0.8 /CUMM (0.10-0.60); BASOPHIL % 0 % (0.0-2.0); EOSINOPHIL % 1.6 % (0-5); GRANULOCYTE % 68.7 % (42.2-75.2); HEMATOCRIT 28.1 % (42-52); MEAN CORPUSCULAR HGB 20.7 PG (27.0-31.0); MEAN CORPUSCULAR HGB CONC 30.5 G/DL (33.0-37.0); MEAN CORPUSCULAR VOLUME 67.7 FL (80.0-94.0); MEAN PLATELET VOLUME 7.6 FL (7.4-10.4); PLATELET COUNT 412 /CUMM (130-400); RBC DISTRIBUTION WIDTH 22.1 % (11.5-14.5); RED BLOOD CELL CT 4.15 /CUMM (4.70-6.10); WHITE BLOOD CELL COUNT 6.9 /CUMM (4.8-10.8)
--- NOTE | 2017-11-19 13:48 | Event Note ---
Event Note Event Note: Patient is irritated, angry and has been behaving rudely with all the staff members. Every question is being replied with a sarcasm. In one of the incidents , patient mentioned he was feeling frustrated. WHen the tech tried to help him out asking if he would like to take a walk or go to the balcony, He replied with " what do i do in the balcony? JUmp off? Recomendations- WIll request a manager monitoring and observe the patient.
[2017-11-19 14:20] VITALS: BP 119/77
[2017-11-19 22:07] VITALS: BP 128/70
[2017-11-20 02:00] VITALS: BP 117/66
[2017-11-20 06:04] VITALS: BP 122/77
--- NOTE | 2017-11-20 06:59 | PN- Housestaff ---
See Addendum Subjective Follow-up For: microcytic TEETEE w/ lightheadedness, 2/2 upper GI loss Gastric ulcer w/ -ve H.Pyloric PMHx of polysubstance abuse, type 2 diabetes, hypertension, GERD Subjective: Pt seen and examined at bedside this morning. He denied insulin overnight and IV fluidds were discontinued. He is NPO for possible EGD this AM gastroenterology. Patient projected suicidal ideation yesterday where a tire maker was put on to observe patient. Will follow up with psychiatry. Review of Systems Constitutional: Denies: see HPI. Objective Last 24 Hrs of Vital Signs/I&O Vital Signs Date Time Temp Pulse Resp B/P B/P Pulse O2 O2 Flow FiO2 Mean Ox Delivery Rate 11/20 0915 75 158/78 11/20 0914 75 158/78 11/20 0604 97.8 83 20 122/77 98 Room Air 11/20 0200 98.6 77 20 117/66 97 Room Air 11/19 2207 98.1 73 19 128/70 96 Room Air 11/19 1420 98.0 83 18 119/77 99 Room Air Physical Exam General Appearance: Alert, Oriented X3, Mild Distress Skin: No Rashes Skin Temp/Moisture Exam: Warm/Dry HEENT: dry oral mucosa Neck: Supple Cardiovascular: Normal S1, Normal S2 Lungs: increased breath sounds bilaterally; normal air entry Abdomen: Normal Bowel Sounds, Soft, mild epigastric tenderness Neurological: Normal Speech, Strength at 5/5 X4 Ext Extremities: No Edema Vascular: Normal Pulses, Pulses Symmetrical Current Medications: Current Medications Sig/Marissa Start time Last Medication Dose Route Stop Time Status Admin Acetaminophen 650 MG Q6P PRN 11/17 2014 AC PO Budesonide/ 2 PUF BID 11/17 2100 AC 11/20 Formoterol Fumarate INH 0916 Calcium Carbonate 500 MG BIDPRN PRN 11/18 2300 AC PO Dextrose/Sodium 1,000 ML Q10H 11/19 2315 DC 11/20 Chloride IV 0000 Ferric Sodium 125 MG DAILY 11/19 1533 CAN Gluconate Complex IV Gabapentin 600 MG Q6 11/17 235 AC 11/20 PO 0622 Hydrochlorothiazide 25 MG DAILY 11/18 0900 AC 11/20 PO 0915 Insulin Aspart 0 TIDAC 11/18 0800 DC 11/19 SC 1755 Insulin Human Regular 0 Q6 09/23 2359 AC SC Iron Sucrose 200 MG Q48 11/18 899 AC 11/20 Sodium Chloride 100 ML IV 11/2615 Losartan Potassium 50 MG DAILY 11/18 899 AC 11/20 PO 914 Metoprolol Succinate 25 MG DAILY 11/18 899 AC 11/20 PO 913 Morphine Sulfate 0 .STK-MED ONE 11/19 2026 DC PO Morphine Sulfate 30 MG BID 11/19 0032 AC 11/20 PO 14 Nicotine 14 MG DAILY 11/17 2017 AC 11/20 TOP 0915 Nortriptyline HCl 50 MG QAM 11/18 899 AC 11/20 PO 16 Nortriptyline HCl 100 MG QPM 11/17 2100 AC 11/19 PO 2028 Oxycodone HCl 10 MG Q6P PRN 11/19 0045 AC 11/20 PO 0400 Pantoprazole Sodium 40 MG DAILY 11/18 899 AC 11/20 IV 0915 Polyethylene Glycol 1 GAL ONCE ONE 11/19 2100 DC PO 11/19 210 Potassium Chloride 10 MEQ DAILY 11/18 899 AC 11/20 PO 913 Pravastatin Sodium 20 MG DAILY 11/18 899 AC 11/20 PO 913 Ramelteon 8 MG ONCE ONE 11/20 0030 DC 11/20 PO 11/20 0031 0050 Last 24 Hrs of Lab/Dimas Results Last 24 Hrs of Labs/Mics: Laboratory Tests 11/20/17 0735: Anion Gap 9, Estimated GFR > 60, BUN/Creatinine Ratio 15.7, Magnesium 1.9, CBC w Diff NO MAN DIFF REQ, RBC 4.48 L, MCV 67.9 L, MCH 20.8 L, MCHC 30.6 L, RDW 22.5 H, MPV 7.6, Gran % 72.5, Lymphocytes % 17.8 L, Monocytes % 7.4, Eosinophils % 2.3, Basophils % 0, Absolute Granulocytes 6.7 H, Absolute Lymphocytes 1.6, Absolute Monocytes 0.7 H, Absolute Eosinophils 0.2, Absolute Basophils 0 Assessment/Plan Assessment: Patient is a 52 year old male with PMH of GI bleed, polysubstance abuse, type 2 diabetes mellitus, hypertension, GERD presenting with a complaint of fatigue and states "I am anemic." Found to have a hemoglobin of 6.6 on admission with MCV of 64.1. Last admitted in May 2017 for suspected GI bleed which had a hemoglobin of 5.2 at that time. Suggested to follow up with colonoscopy at that time. CT Abdomen/pelvis w/ contrast MAY 2017 There is a small amount of simple fluid that layers within the pelvis, the source of which is uncertain on the basis of this examination. No discrete inflammatory changes. No hydronephrosis and no evidence of obstructive uropathy. No discrete drainable fluid collection. No evidence of small bowel obstruction. Upper endoscopy was done on 06/18/17: Circumferential prepyloric/antral ulcer status post biopsies. No active source of bleeding was noticed Also small 2 cm hiatal hernia was noticed. There were deformed duodenal bulb suggestive of prior peptic ulcer disease. Grossly normal small bowel folds and random biopsies were taken. patient refused colonoscopy and preps. 11/20: Patient given all home medication prescriptions and given a primary care referral, GI, hematolgist and pyschiatrist on discharge. Advised to establish PCP prior to pain management. PROBLEM LIST: 1. Acute on Chronic Anemia 2. Chronic Pain 3. COPD 4. Hypertension 5. Diabetes mellitus 6. Hyperlipidemia 7. Chronic Smoker PLAN: * Patient NPO for EGD; refused colonoscopy recommendation * Follow hemoglobin (patient had 2 units on admission) - 6.6 on admission currently 9.3/30.4 * Iron Venofer * Chronic Pain: Roxicodone 10mg q6 PRN; nortriptilyne 50/100; Morphine sulfate 30mg BID * SOCIAL WORK contacted - patient concern for affording food/stamps * No outpatient primary care physician at this point for referral for pain clinic * ISS - accu-checks * Continue Home medications: Losartan 50, HCTZ 25, MEtoprolol 25 Pravastatin 20 * Nicotine patch - pt smokes 2 packs a day Code Status: Full Code DVT PPx: ALPS only given possible GI bleed Diet: NPO today Problem List: 1. Chronic pain 2. Tobacco abuse 3. Anemia 4. Opiate dependence Pain Ratin Pain Location: epigastric + lower back Pain Goal: Pain 4 or less Pain Plan: as per pain pathway Tomorrow's Labs & Rationales: cbc - monitor H/H
[2017-11-20 08:27] LABS: ABSOLUTE BASOPHIL COUNT 0 /CUMM (0.0-0.2); ABSOLUTE EOSINOPHIL COUNT 0.2 /CUMM (0.0-0.7); ABSOLUTE GRANULOCYTE CT 6.7 /CUMM (1.4-6.5); ABSOLUTE LYMPH COUNT 1.6 /CUMM (1.2-3.4); ABSOLUTE MONOCYTE COUNT 0.7 /CUMM (0.10-0.60); BASOPHIL % 0 % (0.0-2.0); EOSINOPHIL % 2.3 % (0-5); GRANULOCYTE % 72.5 % (42.2-75.2); HEMATOCRIT 30.4 % (42-52); MEAN CORPUSCULAR HGB 20.8 PG (27.0-31.0); MEAN CORPUSCULAR HGB CONC 30.6 G/DL (33.0-37.0); MEAN CORPUSCULAR VOLUME 67.9 FL (80.0-94.0); MEAN PLATELET VOLUME 7.6 FL (7.4-10.4); PLATELET COUNT 451 /CUMM (130-400); RBC DISTRIBUTION WIDTH 22.5 % (11.5-14.5); RED BLOOD CELL CT 4.48 /CUMM (4.70-6.10); WHITE BLOOD CELL COUNT 9.2 /CUMM (4.8-10.8)
--- NOTE | 2017-11-20 11:26 | Cons- Psychiatry ---
Psychiatric Consult Date of Consult: 11/20/17 Reason for Consult: "Patient threatened to jump off a balcony" History of Present Illness: This 50-year-old male presented to the emergency room with symptoms of weakness which he attributed to anemia. Medical history also significant for chronic back and shoulder pain, hypertension, diabetes mellitus with peripheral neuropathy, hyperlipidemia, COPD. Reportedly the patient told attack yesterday that he might as well jump off the balcony. Today he says that he was joking. The tach had suggested that they go for walk to the balcony and h replied that if he did he may just jump off. He says this was "maybe I could have just broken my legs and gotten rid of the pain , it was a joke. The patient presents as irritable and frustrated. He reports that he was taking pain medication but was discharged from his primary care doctor although he does not say why. He says that he was maintained on opiates "onto the FDA wanted everybody off them". He adamantly denies overusing them while they were prescribed. The patient reports that his level of functioning is significantly limited by pain and he is frustrated because of this. He says his sleep is poor because he is being woken frequently at night are because of his pain. Appetite is is good. At home he says he eats only once or twice a day as he does not have enough money for food. He is not suicidal or homicidal and there are no psychotic symptoms. Past psychiatric history: Denies. No history of deliberate self-harm or suicide attempts. Allergies: Coded Allergies: No Known Allergies (10/25/16) Current Medications: Med Acetaminophen 650 MG PO Q6P PRN 11/17/172014 Budesonide/Formoterol Fumarate 2 PUF INH BID 11/17/172099 Calcium Carbonate 500 MG PO BIDPRN PRN 11/18/17 230 Gabapentin 600 MG PO Q6 11/17/17 235 Hydrochlorothiazide 25 MG PO DAILY 11/18/17 0900 Insulin Human Regular SC Q6 11/19/17 235 Iron Sucrose 200 MG IV Q48 11/18/17 0900 Sodium Chloride 100 ML Losartan Potassium 50 MG PO DAILY 11/18/17 0900 Metoprolol Succinate 25 MG PO DAILY 11/18/17 0900 Morphine Sulfate 30 MG PO BID 11/19/17 0032 Nicotine 14 MG TOP DAILY 11/17/172017 Nortriptyline HCl 50 MG PO QAM 11/18/17899 Nortriptyline HCl 100 MG PO QPM 11/17/172099 Oxycodone HCl 10 MG PO Q6P PRN 11/19/17 0045 Pantoprazole Sodium 40 MG IV DAILY 11/18/17899 Potassium Chloride 10 MEQ PO DAILY 11/18/17 09 Pravastatin Sodium 20 MG PO DAILY 11/18/17 09 Past History Past Medical History Neurological: migraine Cardiovascular: hypertension Respiratory: asthma Gastrointestinal: GERD, gi bleed Hepatic: NONE Renal: NONE Musculoskeletal: CHRONIC BACK PAIN Psychiatric: OPIOD DEP. 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 He does not wish to open the curtains as the view is only of a wall. He was alert and oriented 3. Gait was not assessed. Eye contact was fair. Speech was normal in rate, rhythm, volume and tone. He described his mood is frustrated. His affect was mood congruent. He was tearful intermittently. He was not suicidal or homicidal. Thought process was normal in tempo, stream and form with no delusions or obsessions. Thought content was focused on his pain. Attention and concentration were good. There was no perceptual abnormality. Recent and remote memory were intact. Level of intelligence is average, fund of knowledge average, use of language appropriate. Patient's insight is fair, judgment is unimpaired. Lab Results: Lab Ferritin 3.8 ng/mL L 11/17/17 1828 Iron 12 ug/dL L 11/17/17 1828 TIBC 429 ug/dL 11/17/17 1828 Total Bilirubin 0.1 mg/dL L 11/17/17 1828 APTT 31 SEC 11/17/17 1828 INR 1.16 11/17/17 1828 PT 12.7 SEC H 11/17/17 1828 Hct 30.4 % L 11/20/17 0735 Hgb 9.3 G/DL L 11/20/17 0735 MCH 20.8 PG L 11/20/17734 MCHC 30.6 G/DL L 11/20/17734 MCV 67.9 FL L 11/20/17734 Plt Count 451 /CUMM H 11/20/17734 RBC 4.48 /CUMM L 11/20/17734 RDW 22.5 % H 11/20/17734 WBC 9.2 /CUMM 11/20/17734 Impression: The patient is frustrated and irritable which he attributes to his chronic pain as well as his other health difficulties. He also has significant psychosocial stressors. He has some features of a depressive disorder. He is not suicidal. There are no psychotic symptoms. Discussed the concept of chronic pain. The patient declined any psychiatric intervention. Provisional Treatment Plan: -The patient is on nortriptyline 150 mg daily. Notes do not reveal who prescribed this or why. Suggest blood level is there is a narrow therapeutic window. -The patient reports that he does not have adequate finances to eat more than once a day. In the face of his anemia, social work may be able to offer assistance with benefits. He is on Social Security disability. -If the patient is agreeable he may benefit from supportive psychotherapy. At this time he declines referral to psychiatric services. Thank you for consulting us on this patient. Please feel free to contact us if we can be of any further assistance.
--- NOTE | 2017-11-20 11:29 | Patient Discharge Instructions ---
Discharge Instructions General Discharge Information You were seen/treated for: microcytic TEETEE w/ lightheadedness, 2/2 upper GI loss Gastric ulcer w/ -ve H.Pyloric PMHx of polysubstance abuse, type 2 diabetes, hypertension, GERD Special Instructions: Please follow up with referred PCP within 1-2 weeks of discharge. Please follow up with Track Inspecting Supervisor within 1-2 weeks of discharge for pathology report (Dr. Mcgowan). Please follow up with a Manager Risk Management within 1-2 weeks of discharge. We have provided you with a small supply of pain management medications. Please take with caution and obtain a primary care physician for proper referral to a pain management clinic. Continue taking Iron supplementation. AVOID NSAIDS (ibuprofen, advil, motrin etc ). Return to ED if you experience chest pain, fatigue, shortness of breath, visibile blood loss, bloody diarrhea/vomting. Acute Coronary Syndrome Inclusion Criteria At DC or during hospital stay patient has or had the following: ACS DIAGNOSIS No Discharge Core Measures Meds if any: Prescribed or Continued at Discharge Meds if any: NOT Prescribed or Continued at Discharge Congestive Heart Failure Inclusion Criteria At DC or during hospital stay patient has or had the following: CHF DIAGNOSIS No Discharge Core Measures Meds if any: Prescribed or Continued at Discharge Meds if any: NOT Prescribed or Continued at Discharge Cerebrovascular accident Inclusion Criteria At DC or during hospital stay patient has or had the following: CVA/TIA Diagnosis No Discharge Core Measures Meds if any: Prescribed or Continued at Discharge Meds if any: NOT Prescribed or Continued at Discharge Venous thromboembolism Inclusion Criteria VTE Diagnosis No VTE Type NONE VTE Confirmed by (Test) NONE Discharge Core Measures - Per Current guidelines, there needs to be overlap - treatment for the first 5 days of Warfarin therapy. - If discharged on Warfarin prior to 5 days of - overlap therapy, the patient will need to be - assessed for post discharge needs including - *Post discharge parental anticoagulation - *Warfarin and/or parental anticoagulation education - *Follow up date to check INR post discharge At least 5 days overlap therapy as Inpatient No Meds if any: Prescribed or Continued at Discharge Note: Overlap Therapy is Warfarin and Anticoagulant Meds if any: NOT Prescribed or Continued at Discharge
[2017-11-20] MEDS ORDERED: PERCOCET 5-3251 EACH PO ×5 (11:31→16:06)
[2017-11-20 14:09] VITALS: BP 100/69
--- NOTE | 2017-11-20 14:23 | Discharge Summary ---
Visit Information Visit Dates Admission Date: 11/17/17 Discharge Date: 11/20/17 Hospital Course Course Attending Physician: Avni Muñoz MD Primary Care Physician: Patient Has No Primary Care Dr Hospital Course: Patient is a 52 year old male with PMH of GI bleed, polysubstance abuse, type 2 diabetes mellitus, hypertension, GERD presenting with a complaint of fatigue and states "I am anemic." Found to have a hemoglobin of 6.6 on admission with MCV of 64.1. Last admitted in May 2017 for suspected GI bleed which had a hemoglobin of 5.2 at that time. Suggested to follow up with colonoscopy at that time. EMERGENCY DEPARTMENT: Vitals: 97.2, 86, 16, 96 Labs: WBC: 8.6, Hgb: 6.6, Hct: 22.3, MCV 64.1, Plt: 550 Chemistry: 139, 3.5, 98cl, 29 CO2, BUN 16, Cr: 0.9 PT: 12.7, INR: 1.16, APTT 31 EKG: SR 76, QTC 459, QRS 120 CT Abdomen/pelvis w/ contrast MAY 2017 There is a small amount of simple fluid that layers within the pelvis, the source of which is uncertain on the basis of this examination. No discrete inflammatory changes. No hydronephrosis and no evidence of obstructive uropathy. No discrete drainable fluid collection. No evidence of small bowel obstruction. Upper endoscopy was done on 06/18/17: Circumferential prepyloric/antral ulcer status post biopsies. No active source of bleeding was noticed Also small 2 cm hiatal hernia was noticed. There were deformed duodenal bulb suggestive of prior peptic ulcer disease. Grossly normal small bowel folds and random biopsies were taken. patient refused colonoscopy and preps. PROBLEM LIST: 1. Acute on Chronic Anemia 2. Chronic Pain 3. COPD 4. Hypertension 5. Diabetes mellitus 6. Hyperlipidemia 7. Chronic Smoker Acute on Chronic Anemia Patient with multiple admissions for anemia of counts ranging from 5.2 to 6.6 within the past month. Multiple visits to the ED for generalized weakness/ fatigue. Admitted to ICU with multiple transfusions and upper endoscopy 06/18/17. Refused colonoscopy at that time due to hemorrhoids. Presents with H/H of 6.6/ 22.3 today. No symptoms. Denies any source of blood loss. 2 Unit PRBC transfusion.GI Consultation - contacted Dr. Mcgowan. Patient denied colonoscopy but underwent EGD. Chronic Pain Patient complains of chronic back and lower extremity pain. He is on multiple medications at home. Although he is no longer following Dr. Garcia, patient in search of new primary care physician. CT FLIGHT CONTROL MANAGER checked. Roxicodone.Nortriptyline 50mg QAM + 100mg QPMGabapentin 600mg Q6 PO COPD Patient with chronic smoking history of 2 packs a day for majority of his life. Denies any shortnes of breath or cough. Does not follow a mattress stuffer. Hypertension Continue Metoprolol 25mg Daily, HCTZ 25mg, Losartan 50mg Diabetes Mellitus Held home metformin + glimiperide. ISS + accu-checks Hyperlipidemia Continued Provastatin 20mg Daily Chronic Smoker 2 pack/day for majority of life. Nicotine patch 14mg during stay. Psychiatry Evaluation The patient is on nortriptyline 150 mg daily. Notes do not reveal who prescribed this or why. Suggest blood level is there is a narrow therapeutic window. The patient reports that he does not have adequate finances to eat more than once a day. In the face of his anemia, social work may be able to offer assistance with benefits. He is on Social Security disability. If the patient is agreeable he may benefit from supportive psychotherapy. At this time he declines referral to psychiatric services. Endoscopy Procedure Medical History: unchanged (see [facility] consult) Mental Status: alert/oriented Heart/Lung Eval Prior to Sedation: within normal limits Candidate for Sedation? Yes Procedure Date: 11/20/17 Procedure Type: EGD w/biopsy Department Store Door Greeter: Shay Mcgowan MD ASA Classification: II Indications: Anemia in a pt with a history of PUD. Instrument: diagnostic gastroscope Meds Received: [facility] Patient's Tolerance: good Complications: none Extent Reached: second part of duodenum Procedure: After getting written informed consent the patient was placed in the left lateral decubitus position with pulse oximetry, cardiac monitoring, and supplemental oxygen given. A bite block was inserted and IV sedation was given until the desired effect was achieved. A high definition upper Olympus endoscope was then inserted into the mouth and advanced to the second portion of the duodenum with little difficulty. Retroflexed views and photodocumentation was obtained. Findings: Esophagus: The esophageal mucosa was grossly normal appearance and there was a normal-appearing Z line at 45 cm from the incisors. Stomach: Within the antrum was a large circumferential prepyloric ulcer approximately 2-3 cm in diameter which was clean based and mostly unchanged from his prior examination back in May. There were no visible vessels or active bleeding appreciated. Biopsies were obtained around the edges of the ulcer with cold biopsy forceps and were sent to pathology for further evaluation and random biopsies were also obtained from the antrum with cold biopsy forceps and were sent to pathology for further evaluation. Duodenum: Within the duodenal bulb was 1 small less than 1 cm clean-based ulcer without stigmata of recent hemorrhage. The duodenal sweep and folds are grossly normal in appearance. Impression: 1. Large prepyloric clean-based gastric ulcer status post biopsies. 2. Small clean-based duodenal ulcer. 3. No active bleeding appreciated. Recommendations: 1. The patient will be transferred back to the medical floor his diet should be advanced as tolerated. 2. He should be placed on oral PPI twice a day. 3. He should avoid NSAIDs. 4. He should follow up the pathology results me as an outpatient. 5. Would recommend he have a colonoscopy for further evaluation of his anemia which can be pursued as an outpatient if and when he is agreeable. 6. If his hemoglobin is stable and there are no other active issues consideration may be given to discharge him home later today or in the a.m. Code Status: Full Code DVT PPx: ALPS Only given GI bleed/anemia Diet: CC1 Allergies: Coded Allergies: No Known Allergies (10/25/16) Disposition Summary Disposition Principal Diagnosis: microcytic iron deficiency anemia secondary to upper GI loss Additional Diagnosis: Gastric ulcer Discharge Disposition: home or self care Discharge Instructions General Discharge Information Code Status: Full Code Patient's Diet: Consistent Carbohydrate 1 Patient's Activity: tolerated Follow-Up Instructions/Appts: Please follow up with referred PCP within 1-2 weeks of discharge. Please follow up with Jewelry Department Supervisor within 1-2 weeks of discharge for pathology report (Dr. Mcgowan). Please follow up with a Water Supervisor within 1-2 weeks of discharge. We have provided you with a small supply of pain management medications. Please take with caution and obtain a primary care physician for proper referral to a pain management clinic. Continue taking Iron supplementation. AVOID NSAIDS (ibuprofen, advil, motrin etc ). Return to ED if you experience chest pain, fatigue, shortness of breath, visibile blood loss, bloody diarrhea/vomting. Medications at Discharge Discharge Medications: Stop taking the following medications: Acyclovir (Acyclovir) 400 MG TABLET ORAL THREE TIMES DAILY Qty = 90 Celecoxib (Celebrex) 200 MG CAPSULE ORAL TWICE DAILY Aspirin (Ecotrin*) 81 MG TABLET.DR ORAL DAILY Qty = 30 Continue taking these medications: Glimepiride (Glimepiride) 2 MG TABLET 1 Tablet ORAL DAILY Qty = 30 Instructions: . Comments: NOT GIVEN IN HOSPITAL This prescription has been renewed Metformin HCl (Glucophage) 1,000 MG TABLET 1 Tablet ORAL TWICE DAILY Qty = 60 Instructions: . Comments: NOT GIVEN IN HOSPITAL This prescription has been renewed Esomeprazole (Nexium) 40 MG CAPSULE. 1 Capsule ORAL DAILY Qty = 30 Comments: NOT GIVEN IN HOSPITAL This prescription has been renewed Fluticasone/Salmeterol (Advair 250-50 Diskus) 250 MCG-50 MCG/DOSE BLST.W.DEV 2 Puff Inhale through mouth TWICE DAILY Qty = 1 Comments: NOT GIVEN IN HOSPITAL This prescription has been renewed Nortriptyline HCl (Pamelor) 50 MG CAPSULE 1 Capsule ORAL Every Morning Qty = 30 Comments: LAST TAKEN 11/20/17 @ 9:15 AM This prescription has been renewed Nortriptyline HCl (Pamelor) 50 MG CAPSULE 2 Capsule ORAL Every night Qty = 60 Comments: Last Taken: 11/19/17 Time: 8:30 PM This prescription has been renewed Gabapentin (Gabapentin) 600 MG TABLET 1 Tablet ORAL EVERY SIX HOURS Qty = 120 Comments: LAST TAKEN 11/20/17 @ 6:22 AM This prescription has been renewed Losartan Potassium (Losartan Potassium) 50 MG TABLET 1 Tablet ORAL DAILY Qty = 30 Comments: LAST TAKEN 11/20/17 @ 9:15 AM This prescription has been renewed Pravastatin Sodium (Pravastatin Sodium) 20 MG TABLET 1 Tablet ORAL DAILY Qty = 30 Comments: LAST TAKE: 11/20/17 TIME: 9:15 AM This prescription has been renewed Metoprolol Succinate (Metoprolol Succinate) 25 MG TAB 1 Tablet ORAL DAILY Qty = 30 Comments: LAST TAKEN 11/20/17 @ 9:15 AM This prescription has been renewed Start taking the following new medications: Oxycodone HCl/Acetaminophen (Percocet 5-325 MG Tablet) 5 MG-325 MG TABLET 1 Tablet ORAL TWICE DAILY Qty = 14 No Refills Instructions: . Comments: NOT GIVEN IN HOSPITAL Ferrous Sulfate (Ferrous Sulfate) 325 MG (65 MG IRON) TABLET 1 Tablet ORAL DAILY Qty = 30 No Refills Instructions: . Comments: NOT GIVEN IN HOSPITAL The following medications have been changed: Old: Potassium Chloride (Potassium Chloride) 10 MEQ TABLET.ER 1 Tablet ORAL DAILY Qty = 90 New: Potassium Chloride (Potassium Chloride) 10 MEQ TABLET.ER 1 Tablet ORAL DAILY Qty = 30 Instructions: . Comments: LAST TAKEN 11/20/17 @ 9:15 AM Old: Hydrochlorothiazide (Hydrochlorothiazide) 25 MG TABLET 1 Tablet ORAL DAILY Qty = 30 New: Hydrochlorothiazide (Hydrochlorothiazide) 25 MG TABLET 1 Tablet ORAL DAILY Qty = 30 Instructions: . Comments: LAST TAKEN 11/20/17 @ 9:15 AM Copies To: Alysas LOPEZ,Moira Mcgowan MD,Shay White MD Review Statement Other Findings: Agree with the above assessment and plan of care. Biopsy returned as below. No change in management, will follow-up with GI. HISTORY Anemia in a patient with a history of PUD DIAGNOSIS A. PREPYLORIC ULCER, STOMACH, BIOPSIES: MILD CHRONIC GASTRITIS WITH FOVEOLAR CELL HYPERPLASIA, G-CELL HYPERPLASIA AND FOCAL INTESTINAL METAPLASIA. NEGATIVE FOR DYSPLASIA OR ACUTE ACTIVITY. GIEMSA STAIN IS NEGATIVE FOR HELICOBACTER ORGANISMS. B. ANTRUM, STOMACH, MULTIPLE BIOPSIES: MILD CHRONIC ANTRAL GASTRITIS. NEGATIVE FOR ACUTE ACTIVITY AND INTESTINAL METAPLASIA. GIEMSA STAIN IS NEGATIVE FOR HELICOBACTER ORGANISMS.
--- NOTE | 2017-11-20 14:56 | Proc Note Endoscopy ---
Endoscopy Procedure [facility] Mental Status: alert/oriented Heart/Lung Eval Prior to Sedation: within normal limits Candidate for Sedation? Yes Procedure Date: 11/20/17 Procedure Type: EGD w/biopsy Supervisor Dry Cleaning: Shay Mcgowan MD ASA Classification: II Indications: Anemia in a pt with a history of PUD. Instrument: diagnostic gastroscope Meds Received: [facility] Patient's Tolerance: good Complications: none Extent Reached: second part of duodenum Procedure: After getting written informed consent the patient was placed in the left lateral decubitus position with pulse oximetry, cardiac monitoring, and supplemental oxygen given. A bite block was inserted and IV sedation was given until the desired effect was achieved. A high definition upper Olympus endoscope was then inserted into the mouth and advanced to the second portion of the duodenum with little difficulty. Retroflexed views and photodocumentation was obtained. Findings: Esophagus: The esophageal mucosa was grossly normal appearance and there was a normal-appearing Z line at 45 cm from the incisors. Stomach: Within the antrum was a large circumferential prepyloric ulcer approximately 2-3 cm in diameter which was clean based and mostly unchanged from his prior examination back in May. There were no visible vessels or active bleeding appreciated. Biopsies were obtained around the edges of the ulcer with cold biopsy forceps and were sent to pathology for further evaluation and random biopsies were also obtained from the antrum with cold biopsy forceps and were sent to pathology for further evaluation. Duodenum: Within the duodenal bulb was 1 small less than 1 cm clean-based ulcer without stigmata of recent hemorrhage. The duodenal sweep and folds are grossly normal in appearance. Impression: 1. Large prepyloric clean-based gastric ulcer status post biopsies. 2. Small clean-based duodenal ulcer. 3. No active bleeding appreciated. Recommendations: 1. The patient will be transferred back to the medical floor his diet should be advanced as tolerated. 2. He should be placed on oral PPI twice a day. 3. He should avoid NSAIDs. 4. He should follow up the pathology results me as an outpatient. 5. Would recommend he have a colonoscopy for further evaluation of his anemia which can be pursued as an outpatient if and when he is agreeable. 6. If his hemoglobin is stable and there are no other active issues consideration may be given to discharge him home later today or in the a.m.
[2017-11-20] MEDS ORDERED: FERROUS SULFAT325 M3 PO ×2 (15:18→16:22)
[2017-11-20] MEDS ORDERED: POTASSIUM CHLO10 ME4 PO (16:22)
[2017-11-20] MEDS ORDERED: METOPROLOL SUCC25 M1 PO ×2 (16:22→16:23)
[2017-11-20] MEDS ORDERED: ADVAIR 250-501 EACH INH (16:22)
[2017-11-20] MEDS ORDERED: GLIMEPIRIDE2 MG PO (16:22)
[2017-11-20] MEDS ORDERED: GABAPENTIN600 M1 PO (16:22)
[2017-11-20] MEDS ORDERED: PAMELOR50 M1 PO ×2 (16:22)
[2017-11-20] MEDS ORDERED: NEXIUM40 M1 PO (16:22)
[2017-11-20] MEDS ORDERED: HYDROCHLOROTHIA25 M1 PO (16:22)
[2017-11-20] MEDS ORDERED: LOSARTAN POTASS50 M1 PO (16:22)
[2017-11-20] MEDS ORDERED: GLUCOPHAGE1000 M1 PO (16:22)
[2017-11-20] MEDS ORDERED: PRAVASTATIN SOD20 M2 PO (16:23)
== END 2017-11-20 17:45 | DRG 378 ==
LOC: ERH 17:56 → ERHI 19:45 → 2NB 19:45 → ENRESERV 21:47 → ENTRNSPT 22:25 → EDTRNSPTSTS 22:38 → CMPTRNSPT 22:52 → 2NB 22:55 → ENPENDDIS 11-20 17:33 → 2NB 11-20 17:45
PROVIDERS: Internal Medicine Interventional Cardiology; Physician Assistant; Student in an Organized Health Care Education/Training Program
PROC: 30233N1 Transfusion of Nonautologous Red Blood Cells into Peripheral Vein, Percutaneous Approach (ICD-10-PCS; principal; 2017-11-17)
PROC: 0DB68ZX Excision of Stomach, Via Natural or Artificial Opening Endoscopic, Diagnostic (ICD-10-PCS; 2017-11-20)
DX: K92.2 Gastrointestinal hemorrhage, unspecified (principal); F11.20 Opioid dependence, uncomplicated; R45.851 Suicidal ideations; D62 Acute posthemorrhagic anemia; Z87.11 Personal history of peptic ulcer disease; J44.9 Chronic obstructive pulmonary disease, unspecified; F17.210 Nicotine dependence, cigarettes, uncomplicated; E11.40 Type 2 diabetes mellitus with diabetic neuropathy, unspecified; Z79.84 Long term (current) use of oral hypoglycemic drugs; D50.9 Iron deficiency anemia, unspecified; K21.9 Gastro-esophageal reflux disease without esophagitis; I10 Essential (primary) hypertension; G89.29 Other chronic pain; M54.9 Dorsalgia, unspecified; Z79.51 Long term (current) use of inhaled steroids; E78.5 Hyperlipidemia, unspecified; Z59.6 Low income
CPT/HCPCS: 2NBP; 36592; 82436; 86920; 88305; 88312; 93005; 93010; 96374; 99291; J1756; J1815; J3490; J7042; P9016